=== PATIENT | male | born 1935 | race Caucasian/White ===

== ENCOUNTER 2019-10-26 11:42 | Inpatient (IN) | payer MEDICARE, BC ==
[2019-10-26] VITALS (9 sets, daily range): BP systolic 76–102; BP diastolic 30–58
[~2019-10-26] VITALS: Ht 177.8 cm; Wt 65.8 kg
[2019-10-26] MEDS ORDERED: CEFTRIAXONE 1GM BAG (ER ONLY) 50 ML IV ONE ×2 (12:00→12:24)
[2019-10-26] MEDS ORDERED: ACETAMINOPHEN ES 500 MG TABLET PO ONE (12:00)
[2019-10-26] MEDS ORDERED: AZITHROMYCIN 500 MG in IV D5W 250 ML IV ONE (12:00)
[2019-10-26] MEDS ORDERED: DEXAMETHASONE SOD PHOSPHATE 10 MG/ML VIAL IV ONE (12:00)
[2019-10-26] MEDS ORDERED: IV NS 0.9% 1,000 ML BAG IV ONE (12:00)
--- NOTE | 2019-10-26 12:20 | NUR ---
BIB FROM HOME TO ER BED 6. AWAKE, ALERT BUT CONFUSED. IN MOD RESP DISTRESS BREATHING FAST WITH ACCESSORY MUSCLE USE, SATTING @ 95% ON RA. PER REPORT, PT HAD FEVER OF 102 SINCE YESTERDAY. PT IS ALSO NOTED WITH PRODUCTIVE COUGH WITH CRACKLE AND WHEEZING. PT IS PLACED ON 02 VIA FACE MASK@ 8LPM PER MD ORDERED. PT WAS ALSO REPORTED TO HAVE VOMMITED YESTERDAY AND POSSIBLE ASPIRATION. ORAL TEMP NOTED @ 99.9. MD WAS AT THE BEDSIDE FOR EVAL. ORDERS RECEIVED NOTED AND CARRIED OUT.
[2019-10-26] MEDS ORDERED: AZITHROMYCIN 500 MG VIAL ONE (12:24)
[2019-10-26] MEDS ORDERED: DEXAMETHASONE SOD PHOSPHATE 10 MG/ML VIAL ONE (12:24)
[2019-10-26] MEDS ORDERED: ACETAMINOPHEN ES 500 MG TABLET ONE (12:25)
[2019-10-26 12:29] LABS: BASOPHILS % (AUTO) 0.1 % (0.0-2.0); EOSINOPHILS % (AUTO) 0.2 % (0.0-6.0); HEMATOCRIT 39 % (39-51); HEMOGLOBIN 12.3 g/dL (13.5-17.5); LYMPHOCYTES # (AUTO) 0.2 /CMM (0.8-4.8); LYMPHOCYTES % (AUTO) 1.6 % (20.0-44.0); MEAN CORPUSCULAR HGB CONC 32 g/dl (31.0-36.0); MEAN CORPUSCULAR VOLUME 102 fL (80-96); MONOCYTES # (AUTO) 0.2 /CMM (0.1-1.30); MONOCYTES % (AUTO) 1.1 % (2.0-12.0); NEUTROPHILS # (AUTO) 14.8 /CMM (1.8-8.9); PLATELET COUNT (AUTO) 141 /CMM (150-450); RED BLOOD CELL COUNT(AUTO) 3.79 MIL/uL (4.5-6.0); WHITE BLOOD COUNT (AUTO) 15.3 K/uL (4.3-11.0)
[2019-10-26 12:41] LABS: CALCIUM, SERUM 9.1 mg/dL (8.5-10.1); CARBON DIOXIDE 15 mmol/L (21-32); CHLORIDE 97 mmol/L (98-107); CREATININE 2.8 mg/dL (0.6-1.3); GLUCOSE 107 mg/dL (74-106); POTASSIUM 5.6 mmol/L (3.5-5.1); SODIUM SERUM 129 mmol/L (136-145); UREA NITROGEN, BLOOD 58 mg/dL (7-18)
[2019-10-26 12:53] LABS: ALANINE AMINOTRANSFERASE 265 U/L (12-78); ALKALINE PHOSPHATASE 175 U/L (46-116); ASPARTATE AMINOTRANSFERASE 175 U/L (15-37); B-TYPE NATRIURETIC PEPTIDE 12672 PG/ML (0-125); BILIRUBIN,DIRECT 3.9 mg/dL (0.0-0.2); TOTAL PROTEIN, SERUM 7.5 g/dL (6.4-8.2)
[2019-10-26 12:54] LABS: BAND % (MANUAL) 21 % (0.0-5.0); LYMPHOCYTES % (MANUAL) 2 % (16-48); MONOCYTES % (MANUAL) 2 % (0-11.0); MYELOCYTES % 1 % (0-0); NEUTROPHILS % (MANUAL) 74 (42-76)
[2019-10-26 12:56] LABS: BILIRUBIN,TOTAL 4.6 mg/dL (0.2-1.0); D-DIMER 10.09 mg/L(FEU (0.17-0.50)
[2019-10-26 12:57] LABS: CREATINE KINASE, TOTAL 223 U/L (39-308); FERRITIN 113 ng/mL (8-388)
[2019-10-26 12:59] LABS: C-REACTIVE PROTEIN 19.6 mg/dL (0.0-0.9)
--- NOTE | 2019-10-26 13:20 | NUR ---
VERBAL ORDER RECEIVED TO GIVEN ANOTHER 1L NS IV BOLUS X 1. NOTED AND CARRIED OUT
[2019-10-26] MEDS ORDERED: IV NS 0.9% 500 ML BAG IV ONE (13:30)
--- NOTE | 2019-10-26 13:30 | NUR ---
PT TITRATED DOWN TO 6LPM VIA FACE MASK SATTING @ 100%
--- NOTE | 2019-10-26 13:51 | NUR ---
PT TO CT ON [place]
--- NOTE | 2019-10-26 13:57 | NUR ---
ROOM 103
--- NOTE | 2019-10-26 14:24 | NUR ---
report given to claudette Angel for uday
--- NOTE | 2019-10-26 14:47 | NUR ---
pt transported to unit on gurney with emt and rn at bedside w/ acls protocol. nad noted during transport.
--- NOTE | 2019-10-26 15:00 | NUR ---
Received patient form ER via daly,A/O x1, on 6L mask, sat 100%, labored resp noted; IV line noted R ac, Ostomy bag noted, intact and no leakage observed,pt has left proctor skin lesion, and discoloration of right leg, personal belongis in place, hearing aids removed and placed in belongings bag, watches noted and placed in belonging bag. Safety measures implemented, bed in lowest position, call light within reach Will cont to monitor
--- NOTE | 2019-10-26 15:25 | NUR ---
Patient's BP is low, MD notified, OK to transfer to ICU
[2019-10-26] MEDS ORDERED: ONDANSETRON HCL/PF 4 MG/2 ML VIAL IVP PRN (15:30)
[2019-10-26] MEDS ORDERED: ACETAMINOPHEN 325 MG TABLET PO PRN (15:30)
[2019-10-26] MEDS ORDERED: Z GUARD REMEDY 2 OZ OINT TP PRN (15:30)
[2019-10-26] MEDS ORDERED: HYDROCODONE/APAP 5/325MG 1 EACH TABLET PO PRN (15:30)
[2019-10-26] MEDS ORDERED: MAGNESIUM HYDROXIDE 30 ML UDC PO PRN (15:30)
[2019-10-26] MEDS ORDERED: MAG HYDROX/AL HYDROX/SIMETH 30 ML UDC PO PRN (15:30)
[2019-10-26] MEDS ORDERED: ENOXAPARIN SODIUM 40 MG/0.4 ML DISP.SYRIN SQ SCH (15:30)
[2019-10-26] MEDS ORDERED: ZOLPIDEM TARTRATE 5 MG TABLET PO PRN (15:30)
[2019-10-26] MEDS ORDERED: ENOXAPARIN SODIUM 30 MG/0.3 ML DISP.SYRIN SQ SCH (16:00)
[2019-10-26] MEDS ORDERED: HEPARIN SODIUM, PORCINE 5000 UNITS/1 ML VIAL SQ SCH (16:00)
--- NOTE | 2019-10-26 16:05 | NUR ---
RN NOTES RECEIVED PATIENT FROM [facility] AOX1. ON OXYGEN 6L/MIN VIA SIMPLE MASK SATURATING 99-100%. BREATHING NORMAL NO SOB NOTED RESPIRATION EVEN NON LABORED. NO S/S OF PAIN OR DISTRESS NOTED. RT SIDE COLOSTOMY BAG INTACT NO LEAKAGE NOTED. BODY ASSESSMENT DONE NOTED WITH SKIN ISSUES PICTURE TAKEN. RFA IV SITE INTACT PATENT NO S/S OF INFILTRATION NOTED. SAFETY PRECAUTION IN PLACE. WILL CONT TO MONITOR.
--- NOTE | 2019-10-26 16:19 | NUR ---
RECEIVED CALL FROM LAB REGARDING LACTIC ACID 3.6, NOTIFIED ITS TRENDING DOWN FROM 5.6 NNO.
[2019-10-26] MEDS: IV D5/ 0.9% NACL 1,000 ML IV PRN (16:41)
[2019-10-26] MEDS ORDERED: DEXAMETHASONE SOD PHOSPHATE 4 MG/ML VIAL IV SCH (17:00)
[2019-10-26] MEDS: HEPARIN SODIUM, PORCINE 5000 UNITS/1 ML VIAL SQ SCH (17:01)
[2019-10-27] VITALS (74 sets, daily range): BP systolic 78–164; BP diastolic 35–116
[2019-10-27] MEDS ORDERED: NOREPINEPHRINE 4 MG/4 ML AMPUL IV ONE (01:14)
[2019-10-27] MEDS: NOREPINEPHRINE 8 MG in IV NS 0.9% 242 ML IV PRN ×2 (01:26→13:38)
--- NOTE | 2019-10-27 03:39 | NUR ---
BLOOD CULTURE PRELIMINARY RESULTS RECEIVED GRAM NEGATIVE RODS SEEN ON GRAM STAIN.
[2019-10-27] MEDS: HEPARIN SODIUM, PORCINE 5000 UNITS/1 ML VIAL SQ SCH ×2 (04:00→16:52)
[2019-10-27 04:30] LABS: BASOPHILS % (AUTO) 0.1 % (0.0-2.0); EOSINOPHILS % (AUTO) 4.8 % (0.0-6.0); HEMATOCRIT 36 % (39-51); HEMOGLOBIN 11.8 g/dL (13.5-17.5); LYMPHOCYTES # (AUTO) 0.2 /CMM (0.8-4.8); LYMPHOCYTES % (AUTO) 0.9 % (20.0-44.0); MEAN CORPUSCULAR HGB CONC 33 g/dl (31.0-36.0); MEAN CORPUSCULAR VOLUME 100 fL (80-96); MONOCYTES # (AUTO) 0.4 /CMM (0.1-1.30); MONOCYTES % (AUTO) 1.6 % (2.0-12.0); NEUTROPHILS # (AUTO) 22.8 /CMM (1.8-8.9); NEUTROPHILS % (AUTO) 92.6 % (43.0-81.0); PLATELET COUNT (AUTO) 93 /CMM (150-450); RED BLOOD CELL COUNT(AUTO) 3.65 MIL/uL (4.5-6.0); WHITE BLOOD COUNT (AUTO) 24.7 K/uL (4.3-11.0)
[2019-10-27 04:42] LABS: ALANINE AMINOTRANSFERASE 175 U/L (12-78); ALBUMIN 2.4 g/dL (3.4-5.0); ALKALINE PHOSPHATASE 102 U/L (46-116); ASPARTATE AMINOTRANSFERASE 88 U/L (15-37); BILIRUBIN,DIRECT 3.5 mg/dL (0.0-0.2); BILIRUBIN,TOTAL 3.7 mg/dL (0.2-1.0); CALCIUM, SERUM 8.3 mg/dL (8.5-10.1); CARBON DIOXIDE 15 mmol/L (21-32); CHLORIDE 102 mmol/L (98-107); CREATININE 2.2 mg/dL (0.6-1.3); GLUCOSE 145 mg/dL (74-106); MAGNESIUM 2.2 mg/dL (1.8-2.4); PHOSPHORUS 3.8 mg/dL (2.5-4.9); POTASSIUM 4.6 mmol/L (3.5-5.1); SODIUM SERUM 132 mmol/L (136-145); TOTAL PROTEIN, SERUM 6.5 g/dL (6.4-8.2); UREA NITROGEN, BLOOD 58 mg/dL (7-18)
[2019-10-27 04:53] LABS: CHOLESTEROL 79 mg/dL (<200); HDL CHOLESTEROL 10 mg/dL (40-60); LDL 30 mg/dL (0-99); THYROID STIMULATING HORMONE 0.505 uIU/mL (0.358-3.74); TRIGLYCERIDES 95 mg/dL (30-150)
--- NOTE | 2019-10-27 05:00 | NUR ---
PATIENT NOTED WITH LOW PLATELET LEVEL 93 MD NOTIFIED PER MD HOLD HEPARIN.
[2019-10-27 05:15] LABS: BAND % (MANUAL) 38 % (0.0-5.0); BASOPHILS % (MANUAL) 0 % (0.0-2.0); EOSINOPHILS % (MANUAL) 0 % (0-4); LYMPHOCYTES % (MANUAL) 0 % (16-48); MONOCYTES % (MANUAL) 0 % (0-11.0); NEUTROPHILS % (MANUAL) 62 (42-76)
--- NOTE | 2019-10-27 06:57 | NUR ---
RN NOTES PATIENT STARTED ON LEVO TOLERATING WELL. BREATHING NORMAL NO SOB NOTED. CONTINUES ON O2 6L/MIN VIA MASK SATURATING WELL 98-100%. PATIENT RESTED WELL THROUGH OUT THE SHIFT. COLOSTOMY BAG INTACT NO LEAKAGE NOTED. SAFETY MEASURES IN PLACE, CALL LIGHT WITHIN REACH. WILL ENDORSE TO AM NURSE FOR ARNAUD.
--- NOTE | 2019-10-27 08:06 | NUR ---
WOUND CARE CONSULT: REVIEWED CHART, NURSING DOCUMENTATION AND PHOTOS WHICH SHOW LOWER LEG WOUNDS, PRESENT ON ADMISSION. RECOMMEND DPM CONSULT. DR ANGELO NOTIFIED OF CONSULT REQUEST. RECOMMENDATIONS MADE FOR SKIN PROTECTION. DISCUSSED WITH NURSING STAFF. WILL SEE PRN. TONG IN AGREEMENT WITH PLAN OF CARE.
[2019-10-27] MEDS ORDERED: TAMS-12 PO (08:56)
[2019-10-27] MEDS ORDERED: ASPI-605 PO (08:56)
[2019-10-27] MEDS ORDERED: PANT40TA4 PO (08:56)
[2019-10-27] MEDS ORDERED: ATOR20TA PO (08:56)
[2019-10-27] MEDS ORDERED: CARV3.122 MT (08:56)
[2019-10-27] MEDS: DEXAMETHASONE SOD PHOSPHATE 10 MG/ML VIAL IV SCH (09:56)
[2019-10-27] MEDS: PANTOPRAZOLE 40 MG TABLET.DR PO SCH (09:57)
[2019-10-27 12:26] LABS: ABG BASE EXCESS -11.6 mmol/L; ABG OXYGEN SATURATION 96.9 % (92.0-98.5); ABG PCO2 21.8 mmHg (35.0-45.0); ABG PH 7.354 (7.350-7.450); ABG PO2 91.3 mmHg (75.0-100.0); AaDO2 82.6 mmHg; COHb 0.3 % (0.5-1.5); O2Hb 96.6 % (94.0-97.0); SITE, ABG Left Radial
[2019-10-27] MEDS ORDERED: CEFTRIAXONE 1 G in IV D5W 50 ML IV SCH (13:00)
[2019-10-27] MEDS: IV D5/ 0.9% NACL 1,000 ML IV PRN (13:30)
[2019-10-27] MEDS ORDERED: AZITHROMYCIN 500 MG in IV D5W 250 ML IV SCH (14:00)
[2019-10-27] MEDS ORDERED: MEROPENEM 1 G in IV NS 0.9% 100 ML IV SCH (15:30)
[2019-10-27 16:09] LABS: APPEARANCE,URINE CLEAR (CLEAR); BILIRUBIN,URINE SMALL (NEGATIVE); BLOOD, URINE LARGE Ery/uL (NEGATIVE); COLOR,URINE YELLOW (YELLOW); KETONES,URINE NEGATIVE (NEGATIVE); LEUKOCYTE ESTERASE ,URINE TRACE (NEGATIVE); NITRITE, URINE POSITIVE (NEGATIVE); PROTEIN,URINE 30 mg/dl (NEGATIVE); UGLUCOSE NEGATIVE (NEGATIVE); UROBILINOGEN,URINE 0.2 EU/dL (0.2)
[2019-10-27] MEDS: CARVEDILOL 3.125 MG TABLET PO SCH (16:23)
[2019-10-27 16:24] LABS: RBC,URINE 21-50 /HPF (0-2)
[2019-10-27 16:25] LABS: BACTERIA,URINE 1+ /HPF (None Seen); SQUAMOUS EPITHELIAL CELL,UR 0-2 /HPF (None Seen)
[2019-10-27] MEDS: MEROPENEM 500 MG in IV NS 0.9% 50 ML IV SCH (16:53)
[2019-10-27] MEDS ORDERED: NOREPINEPHRINE 8 MG in IV D5W 242 ML IV PRN (18:30)
--- NOTE | 2019-10-27 18:41 | NUR ---
ICU Shift Summary At the beginning of shift, patient was in 6L O2 via simple mask. Titrated down to 2L O2 via nasal cannula + ABG obtained 30 min after. No respiratory distress, SPO2 97%. Patient appears comfortable, resting in bed. Alert, able to verbalize name, hard of hearing, sensitive to pain, combative at times. Tele monitor attached, SR/SB 1st degree+BBB. R colostomy intact. Wound care provided, turned per protocol. Swallow eval today - [facility] soft diet. Ate 50% of dinner. RFA 18G patent, ADRIÁN midline infusing D5NS @45mL/hr , levo@0.06mcg/kg/min, titrated per order. Spoke to Ellyn, x2 today + patient's son who was updated. Bed alarm on.
--- NOTE | 2019-10-27 19:09 | NUR ---
RECEIVED LAB RESULT FOR LACTIC ACID 3.4, NOTIFIED NNO ITS TRENDING IN EXPECTED DIRECTION.
--- NOTE | 2019-10-27 19:30 | NUR ---
RN NOTES RECEIVED PATIENT IN BED ALERT RESPONSE YES OR NO. BREATHING NORMAL NO SOB NOTED CONTINUES ON 2L OXYGEN VIA NC SATURATING 98-99%, NO S/S OF PAIN OR DISCOMFORT NOTED. ADRIÁN MIDLINE RFA IV'S INTACT FLUSHING WELL. RT COLOSTOMY INTACT. SKIN WARM AND DRY TO TOUCH. SAFETY MEASURES IN PLACE. CALL LIGHT WITHIN REACH. WILL CONT TO MONITOR.
--- NOTE | 2019-10-27 21:15 | NUR ---
RECEIVED CALL FROM PATIENT'S SON THAT HIS DAD ALWAYS HAVE UTI INFECTION FOR THE LAST 3-5 YEARS.
[2019-10-27] MEDS: TAMSULOSIN 0.4 MG CAP.SR.24H PO SCH (21:18)
[2019-10-27] MEDS: ATORVASTATIN 10 MG TABLET PO SCH (21:18)
[2019-10-28] VITALS (64 sets, daily range): BP systolic 86–132; BP diastolic 40–72
[2019-10-28 04:24] LABS: BASOPHILS # (AUTO) 0.1 /CMM (0.0-0.2); BASOPHILS % (AUTO) 0.3 % (0.0-2.0); EOSINOPHILS % (AUTO) 0.8 % (0.0-6.0); HEMATOCRIT 35 % (39-51); HEMOGLOBIN 11.7 g/dL (13.5-17.5); LYMPHOCYTES # (AUTO) 0.2 /CMM (0.8-4.8); LYMPHOCYTES % (AUTO) 0.6 % (20.0-44.0); MEAN CORPUSCULAR HGB CONC 33 g/dl (31.0-36.0); MEAN CORPUSCULAR VOLUME 100 fL (80-96); MONOCYTES # (AUTO) 0.3 /CMM (0.1-1.30); MONOCYTES % (AUTO) 1.1 % (2.0-12.0); NEUTROPHILS # (AUTO) 25.7 /CMM (1.8-8.9); NEUTROPHILS % (AUTO) 97.2 % (43.0-81.0); PLATELET COUNT (AUTO) 66 /CMM (150-450); RED BLOOD CELL COUNT(AUTO) 3.55 MIL/uL (4.5-6.0); WHITE BLOOD COUNT (AUTO) 26.4 K/uL (4.3-11.0)
[2019-10-28] MEDS: MEROPENEM 500 MG in IV NS 0.9% 50 ML IV SCH (04:25)
[2019-10-28] MEDS: HEPARIN SODIUM, PORCINE 5000 UNITS/1 ML VIAL SQ SCH ×2 (04:29→17:30)
[2019-10-28 04:36] LABS: CALCIUM, SERUM 8.5 mg/dL (8.5-10.1); CARBON DIOXIDE 16 mmol/L (21-32); CHLORIDE 108 mmol/L (98-107); CREATININE 1.8 mg/dL (0.6-1.3); GLUCOSE 139 mg/dL (74-106); MAGNESIUM 2.2 mg/dL (1.8-2.4); PHOSPHORUS 2.9 mg/dL (2.5-4.9); POTASSIUM 4.2 mmol/L (3.5-5.1); SODIUM SERUM 137 mmol/L (136-145); UREA NITROGEN, BLOOD 61 mg/dL (7-18)
[2019-10-28 05:35] LABS: BAND % (MANUAL) 32 % (0.0-5.0); LYMPHOCYTES % (MANUAL) 1 % (16-48); MONOCYTES % (MANUAL) 1 % (0-11.0); NEUTROPHILS % (MANUAL) 66 (42-76)
--- NOTE | 2019-10-28 07:01 | NUR ---
RN NOTES NO CHANGES NOTED DURING SHIFT. CONTINUES ON LEVO ATB AND IV FLUIDS TOLERATING WELL. NO S/S OF ACUTE DISTRESS NOTED. BED BATH GIVEN TOLERATED WELL. RT OSTOMY BAG INTACT. TALKED TO X3 AND SON X1. SKIN WARM AND DRY TO TOUCH. SAFETY MEASURES IN PLACE. CALL LIGHT WITHIN REACH.WILL ENDORSE TO AM NURSE FOR ARNAUD.
[2019-10-28] MEDS: PANTOPRAZOLE 40 MG TABLET.DR PO SCH (07:43)
[2019-10-28] MEDS: DEXAMETHASONE SOD PHOSPHATE 10 MG/ML VIAL IV SCH (07:44)
[2019-10-28] MEDS: CARVEDILOL 3.125 MG TABLET PO SCH ×2 (07:44→16:50)
[2019-10-28] MEDS ORDERED: PANTOPRAZOLE 40 MG TABLET.DR PO SCH (09:00)
[2019-10-28] MEDS ORDERED: ASPIRIN EC 81 MG TABLET.DR PO SCH (09:00)
[2019-10-28] MEDS: CEFTRIAXONE 2 G in IV D5W 100 ML IV SCH (15:00)
[2019-10-28] MEDS: METRONIDAZOLE 500MG/ NS 100ML 500 MG in PREMIX 1 EA IV SCH ×2 (16:00→21:00)
[2019-10-28] MEDS: IV D5/ 0.9% NACL 1,000 ML IV PRN (18:01)
--- NOTE | 2019-10-28 19:10 | NUR ---
SALAD CHEF Shift Summary Patient remains A/Ox1, verbal, able to follow simple command, LIME. Levo turned off early this am, BP WNL, on room air SPO2 98%, no SOB, RR 28, even, unlabored. Suction at bedside. Aspiration precautions maintained -> diet changed to pureed as patient noted to cough after speech [facility] ADRIÁN midline intact. PT eval placed. Per Cain Feng Heparin ok to give despite platelets=66. No active bleeding noted. Afebrile throughout shift. Talked with x3 today. Hearing aids at bedside. Colostomy bag intact. Turned per protocol, wound care as ordered.
--- NOTE | 2019-10-28 19:30 | NUR ---
RN NOTES RECEIVED PATIENT IN BED A/OX1. BREATHING NORMAL NO SOB NOTED, RESPIRATION EVEN NON LABORED. ON RA SATURATING WELL 98-100%. ADRIÁN MIDLINE INTACT PATENT FLUSHING WELL. DENIES NAY PAIN OR DISCOMFORT. SKIN WARM AND DRY TOUCH. PATIENT AFEBRILE. SAFETY MEASURES IN PLACE. WILL CONT TO MONITOR.
[2019-10-28] MEDS: ATORVASTATIN 10 MG TABLET PO SCH (21:11)
[2019-10-28] MEDS: TAMSULOSIN 0.4 MG CAP.SR.24H PO SCH (21:12)
[2019-10-29] VITALS (16 sets, daily range): BP systolic 88–122; BP diastolic 42–81
[2019-10-29 04:19] LABS: BASOPHILS % (AUTO) 0.1 % (0.0-2.0); HEMATOCRIT 35 % (39-51); HEMOGLOBIN 11.4 g/dL (13.5-17.5); LYMPHOCYTES # (AUTO) 0.2 /CMM (0.8-4.8); LYMPHOCYTES % (AUTO) 1.7 % (20.0-44.0); MEAN CORPUSCULAR HGB CONC 33 g/dl (31.0-36.0); MEAN CORPUSCULAR VOLUME 100 fL (80-96); MONOCYTES # (AUTO) 0.4 /CMM (0.1-1.30); MONOCYTES % (AUTO) 3.5 % (2.0-12.0); NEUTROPHILS # (AUTO) 11.3 /CMM (1.8-8.9); NEUTROPHILS % (AUTO) 94.7 % (43.0-81.0); RED BLOOD CELL COUNT(AUTO) 3.48 MIL/uL (4.5-6.0); WHITE BLOOD COUNT (AUTO) 11.9 K/uL (4.3-11.0)
[2019-10-29 04:30] LABS: PLATELET COUNT (AUTO) 22 /CMM (150-450)
[2019-10-29 04:36] LABS: CALCIUM, SERUM 8.2 mg/dL (8.5-10.1); CARBON DIOXIDE 16 mmol/L (21-32); CHLORIDE 112 mmol/L (98-107); CREATININE 1.8 mg/dL (0.6-1.3); GLUCOSE 141 mg/dL (74-106); MAGNESIUM 2.2 mg/dL (1.8-2.4); PHOSPHORUS 2.1 mg/dL (2.5-4.9); SODIUM SERUM 141 mmol/L (136-145); UREA NITROGEN, BLOOD 68 mg/dL (7-18)
[2019-10-29] MEDS: METRONIDAZOLE 500MG/ NS 100ML 500 MG in PREMIX 1 EA IV SCH ×3 (05:08→21:06)
[2019-10-29 05:16] LABS: BAND % (MANUAL) 13 % (0.0-5.0); LYMPHOCYTES % (MANUAL) 2 % (16-48); MONOCYTES % (MANUAL) 4 % (0-11.0); NEUTROPHILS % (MANUAL) 81 (42-76)
--- NOTE | 2019-10-29 06:00 | NUR ---
PATIENT'S PLATELET-22, PATIENT IS DUE FOR HEPARIN CALLED ABHINAV SALES SUPPORT REPRESENTATIVE, PER SALES SUPPORT REPRESENTATIVE OK TO GIVE HEPARIN.
[2019-10-29] MEDS: HEPARIN SODIUM, PORCINE 5000 UNITS/1 ML VIAL SQ SCH (06:13)
--- NOTE | 2019-10-29 07:16 | NUR ---
RN NOTES PATIENT REMAINED ON RA SATURATING 99-100%. BREATHING NORMAL NO SOB NOTED, RESPIRATION EVEN NON LABORED. NO S/S OF ACUTE CHANGES NOTED. ADRIÁN MIDLINE INTACT PATENT FLUID AND ATB RUNNING WELL. BED BATH GIVEN PATIENT TOLERATED WELL. NO S/S OF DISTRESS NOTED. SAFETY MEASURES IN PLACE. ENDORSE TO AM NURSE FOR ARNAUD.
[2019-10-29] MEDS: CARVEDILOL 3.125 MG TABLET PO SCH ×2 (07:58→17:00)
[2019-10-29] MEDS: NEUTRA PHOS 1 POWD.PACKET PO SCH ×2 (08:43→16:11)
[2019-10-29] MEDS: PANTOPRAZOLE 40 MG TABLET.DR PO SCH (08:43)
[2019-10-29] MEDS: DEXAMETHASONE SOD PHOSPHATE 10 MG/ML VIAL IV SCH (08:43)
--- NOTE | 2019-10-29 12:50 | NUR ---
PT TRANSFERRED VIA BED WITH RN AT BEDSIDE AT 1243, BEDSIDE REPORT GIVEN TO SANDI AMIN. PRIOR TO TRANSFERRING PATIENT HEARING AID CASE AND 2 FULL PACKS OF HEARING AID BATTERIES RECEIVED FROM PT'S . NEW PERSONAL PROPERTY DOCUMENTED ON PERSONAL PROPERTY LIST IN CHART. PT WAS CLEANED UP FROM INCONTINENT VOIDING PRIOR TO TRANSFER AND PT WAS FED LUNCH.
--- NOTE | 2019-10-29 13:00 | NUR ---
RECEIVED PATIENT FROM ICU. PATIENT IS AWAKE AND RESPONSIVE. HARD OF HEARING, HEARING AID INSIDE THE BELONGINGS BAG. NOT IN ANY FORM OF DISTRESS. NO SOB, TOLERATING ROOM AIR AT 96% SATURATION. DENIED PAIN AND DISCOMFORT AT THIS TIME. VSS. IV ACCESS INTACT AND PATENT. NOTED WITH OSTOMY BAG AT RLQ. SITUATED PATIENT IN THE ROOM. KEPT PATIENT SAFE AND COMFORTABLE. BED IN LOW/LOCKED POSITION, SIDERAILS UPX2, CALL LIGHT IN REACH. WILL CONT TO MONITOR ACCORDINGLY.
[2019-10-29] MEDS: IV D5/ 0.9% NACL 1,000 ML IV PRN (14:07)
[2019-10-29] MEDS: CEFTRIAXONE 2 G in IV D5W 100 ML IV SCH (16:24)
--- NOTE | 2019-10-29 19:30 | NUR ---
RN CLOSING NOTES PATIENT IN STABLE CONDITION. ALL NEEDS ATTENDED AND PROVIDED. ALL DUE MEDS GIVEN ORDERED. CLEANED PATIENT ACCORDINGLY. KEPT PATIENT SKIN CLEAN AND DRY. KEPT PATIENT SAFE AND COMFORTABLE. BED IN LOW/LOCKED POSITION, SIDERAILS UPX 2. CALL LIGHT IN REACH. ENDORSED ACCORDINGLY.
--- NOTE | 2019-10-29 19:45 | NUR ---
ms sheet metal lay out worker initial notes received report from am nurse and checked pt seen in bed awake and alert confusion noted not in any acute distress noted, with IVF of D5NS at 45ml/hr infusing at this time on his ADRIÁN midline. colostomy bag intact with dry output noted. Re- oriented where he at and how to used the call light system. kept him warm and comfortable at all times. Be alarm set for safety. bed in low lock in position with side rails x2 up. will continue monitoring.
[2019-10-29] MEDS: TAMSULOSIN 0.4 MG CAP.SR.24H PO SCH (22:33)
--- NOTE | 2019-10-30 | NUR ---
ms simone notes pt sleeping at this time without any distress noted. ivf still infusing. kept him warm and comfortable at all times. will continue monitoring.
[2019-10-30] MEDS: METRONIDAZOLE 500MG/ NS 100ML 500 MG in PREMIX 1 EA IV SCH ×3 (05:00→21:38)
[2019-10-30 06:45] LABS: EOSINOPHILS % (AUTO) 0.9 % (0.0-6.0); HEMATOCRIT 35 % (39-51); HEMOGLOBIN 11.4 g/dL (13.5-17.5); LYMPHOCYTES # (AUTO) 0.3 /CMM (0.8-4.8); LYMPHOCYTES % (AUTO) 2.7 % (20.0-44.0); MEAN CORPUSCULAR HGB CONC 33 g/dl (31.0-36.0); MEAN CORPUSCULAR VOLUME 99 fL (80-96); MONOCYTES # (AUTO) 0.8 /CMM (0.1-1.30); MONOCYTES % (AUTO) 6.8 % (2.0-12.0); NEUTROPHILS # (AUTO) 9.9 /CMM (1.8-8.9); NEUTROPHILS % (AUTO) 89.6 % (43.0-81.0); RED BLOOD CELL COUNT(AUTO) 3.53 MIL/uL (4.5-6.0); WHITE BLOOD COUNT (AUTO) 11.1 K/uL (4.3-11.0)
--- NOTE | 2019-10-30 06:52 | NUR ---
ms information technology specialist closing notes pt awake at ths time after morning care done. Slept well and stable ju the night. no signs of any discomfort or any distress noted. IVF fluid still infusing on his left upper arm Midline. All due meds given and all needs met. kept him warm and comfortable at all times. Bed in low in position with side rails x3 up and bed alarm set for pt safety. will endorse to am nurse for continuity of care.
[2019-10-30 06:58] LABS: CALCIUM, SERUM 8.7 mg/dL (8.5-10.1); CARBON DIOXIDE 16 mmol/L (21-32); CHLORIDE 114 mmol/L (98-107); CREATININE 1.5 mg/dL (0.6-1.3); GLUCOSE 113 mg/dL (74-106); MAGNESIUM 2.5 mg/dL (1.8-2.4); PHOSPHORUS 2.7 mg/dL (2.5-4.9); POTASSIUM 4.1 mmol/L (3.5-5.1); SODIUM SERUM 142 mmol/L (136-145); UREA NITROGEN, BLOOD 63 mg/dL (7-18)
[2019-10-30 07:13] LABS: PLATELET COUNT (AUTO) 44 /CMM (150-450)
[2019-10-30 08:00] VITALS: BP 113/56
[2019-10-30] MEDS: DEXAMETHASONE SOD PHOSPHATE 10 MG/ML VIAL IV SCH (08:26)
[2019-10-30] MEDS: PANTOPRAZOLE 40 MG TABLET.DR PO SCH (08:32)
[2019-10-30] MEDS: CARVEDILOL 3.125 MG TABLET PO SCH ×2 (08:33→16:39)
[2019-10-30 08:48] LABS: ALANINE AMINOTRANSFERASE 205 U/L (12-78); ALBUMIN 2.2 g/dL (3.4-5.0); ALKALINE PHOSPHATASE 442 U/L (46-116); ASPARTATE AMINOTRANSFERASE 176 U/L (15-37); BILIRUBIN,TOTAL 7.5 mg/dL (0.2-1.0); CALCIUM, SERUM 8.8 mg/dL (8.5-10.1); CARBON DIOXIDE 14 mmol/L (21-32); CHLORIDE 113 mmol/L (98-107); CREATININE 1.6 mg/dL (0.6-1.3); GLUCOSE 115 mg/dL (74-106); POTASSIUM 4.1 mmol/L (3.5-5.1); SODIUM SERUM 142 mmol/L (136-145); UREA NITROGEN, BLOOD 63 mg/dL (7-18)
--- NOTE | 2019-10-30 10:05 | NUR ---
MS RN OPENING NOTE Received patient awake in bed. A/O x1, able to follow simple command. Breath sounds clear, even, unlabored. No signs acute distress. Heart sound S1S2. Hearing aids at bedside. Colostomy bag intact. Stool output semi-formed, brown. Wound dressing change to left leg, clean, dry, intact. ADRIÁN midline D5NS @ 45 ml/hr. Skin color warm, pink, dry, appropriate for ethnicity. Bed in low position, wheels locked, side rails up x2, call light within reach.
[2019-10-30 10:10] LABS: BAND % (MANUAL) 1 % (0.0-5.0); LYMPHOCYTES % (MANUAL) 4 % (16-48); MONOCYTES % (MANUAL) 5 % (0-11.0); NEUTROPHILS % (MANUAL) 90 (42-76)
[2019-10-30] MEDS: CEFTRIAXONE 2 G in IV D5W 100 ML IV SCH (15:17)
[2019-10-30 16:00] VITALS: BP 128/51
[2019-10-30] MEDS: IV D5/ 0.9% NACL 1,000 ML IV PRN (16:51)
--- NOTE | 2019-10-30 17:05 | NUR ---
Clarified with JOSE MIGUEL Barlow regarding pt's length of IV ATB Flagyl and Rocephin infusion if pt will be discharge tomorrow with Home Health, JOSE MIGUEL Barlow stated that the pt needs a total of 10 days from the 5th so pt will be needing 5 more days after tomorrow. Notified [employer].
--- NOTE | 2019-10-30 17:49 | NUR ---
MS RN CLOSING NOTE Pt asleep in bed. A/O x1, follows simple command. No signs of distress. Breath sounds unlabored, even. Colostomy bag changed 1x. Stool output semi-formed, brown. Wound dressing on L leg changed. Drainage was serosanguineous. DARIÁN midline IV running D5NS @ 45 ml/hr. IV site RFA 18g intact, patent. Bed in low position, wheels locked, side rails up x2, call light within reach, needs met.
--- NOTE | 2019-10-30 19:50 | NUR ---
RN OPENING NOTES RECEIVED REPORT FROM DANO RN, OMAR & ROLDAN. FOUND Pt RESTING IN BED, NO S/S OF ACUTE DISTRESS OR SOB NOTED. RESPIRATIONS EVEN AND UNLABORED WITH EQUAL CHEST RISE AND FALL. PER REPORT Pt IS A/OX1, WITH BASELINE DEMENTIA & CONFUSION, BUT IS ABLE TO FOLLOW SIMPLE COMMANDS. IV ACCESS ON RFA #18G, SL & ADRIÁN MIDLINE. WITH COLOSTOMY BAG IN PLACE. SAFETY MEASURES IN PLACE. BED LOW, LOCKED, HOB ELEVATED, SIDE RAILS UP, CALL LIGHT AND BEDSIDE TABLE WITHIN REACH. WILL CONTINUE TO MONITOR Pt's CONDITION AND SAFETY THROUGHOUT THE NIGHT. Addendum: 10/30/19 at 2017 by JG PLATA RN PER CHANGE OF SHIFT REPORT Pt IS BEING DISCHARGED TOMORROW BACK HOME WITH HOME HEALTH. WILL BE DC'd WITH MIDLINE TO CONTINUE IV ABX. SCHEDULED SORTER PRICER TIME IS AT 1500.
[2019-10-30 20:12] VITALS: BP 108/56
[2019-10-30 20:45] VITALS: BP 108/56
[2019-10-30] MEDS: TAMSULOSIN 0.4 MG CAP.SR.24H PO SCH (21:39)
[2019-10-31] MEDS: METRONIDAZOLE 500MG/ NS 100ML 500 MG in PREMIX 1 EA IV SCH ×3 (05:07→20:54)
[2019-10-31 06:20] LABS: HEMATOCRIT 34 % (39-51); HEMOGLOBIN 11.2 g/dL (13.5-17.5); LYMPHOCYTES # (AUTO) 0.4 /CMM (0.8-4.8); LYMPHOCYTES % (AUTO) 3.6 % (20.0-44.0); MEAN CORPUSCULAR HGB CONC 33 g/dl (31.0-36.0); MEAN CORPUSCULAR VOLUME 99 fL (80-96); MONOCYTES # (AUTO) 0.7 /CMM (0.1-1.30); MONOCYTES % (AUTO) 5.5 % (2.0-12.0); NEUTROPHILS # (AUTO) 11.3 /CMM (1.8-8.9); NEUTROPHILS % (AUTO) 90.9 % (43.0-81.0); PLATELET COUNT (AUTO) 65 /CMM (150-450); RED BLOOD CELL COUNT(AUTO) 3.45 MIL/uL (4.5-6.0); WHITE BLOOD COUNT (AUTO) 12.5 K/uL (4.3-11.0)
[2019-10-31] MEDS: PANTOPRAZOLE 40 MG TABLET.DR PO SCH (06:29)
--- NOTE | 2019-10-31 06:38 | NUR ---
RN CLOSING NOTES NO SIGNIFICANT CHANGES IN Pt's CONDITION DURING THE NIGHT. ALL NEEDS MET AND ATTENDED TO. Pt IS RESTING COMFORTABLY IN BED. NO S/S OF ACUTE DISTRESS OR SOB NOTED, RESPIRATION EVEN AND UNLABORED. SAFETY MEASURES IN PLACE. WILL ENDORSE TO DAYSHIFT RN FOR Pt's ARNAUD.
[2019-10-31 06:50] LABS: CALCIUM, SERUM 8.6 mg/dL (8.5-10.1); CARBON DIOXIDE 15 mmol/L (21-32); CHLORIDE 113 mmol/L (98-107); CREATININE 1.5 mg/dL (0.6-1.3); GLUCOSE 105 mg/dL (74-106); MAGNESIUM 2.2 mg/dL (1.8-2.4); POTASSIUM 3.9 mmol/L (3.5-5.1); SODIUM SERUM 141 mmol/L (136-145); UREA NITROGEN, BLOOD 53 mg/dL (7-18)
--- NOTE | 2019-10-31 08:00 | NUR ---
m/s nurses' registry director: initial assessment received pt in bed awake, a/ox1, pt mostly passive, but follows directions. no sob noted. voiced no discomfort. afebrile. no distress noted. will continue to monitor.
[2019-10-31] MEDS: CARVEDILOL 3.125 MG TABLET PO SCH ×2 (08:33→17:30)
[2019-10-31 09:11] VITALS: BP 129/66
[2019-10-31 09:45] LABS: LYMPHOCYTES % (MANUAL) 9 % (16-48); MONOCYTES % (MANUAL) 2 % (0-11.0); MYELOCYTES % 2 % (0-0); NEUTROPHILS % (MANUAL) 87 (42-76)
--- NOTE | 2019-10-31 10:00 | NUR ---
m/s aeronautical engineer: notes up with physical therapist, braydon. well. will continue to monitor. pt for d'c planning today per case management. awaiting for md order.
--- NOTE | 2019-10-31 12:00 | NUR ---
m/s director of outpatient services: notes lunch served and assisted by crutch maker with meals. pt for d'c at 3pm per case management and aware.
--- NOTE | 2019-10-31 13:30 | NUR ---
m/s dry starch operator: notes reminded dr. dorsey that we need discharge order. also case management spoke to dr. dorsey for discharge order. home health has been arranged by case management and to be home when pt gets there per case management.
--- NOTE | 2019-10-31 14:10 | NUR ---
m/s electrotype finisher: notes dr. dorsey called and will not discharge this pt today, already spoke to son and case management, also spoke to dr. hernandez about his stent, probably will do it tomorrow as stated and wants to keep pt npo. order carried out. cn made aware.
[2019-10-31] MEDS: CEFTRIAXONE 2 G in IV D5W 100 ML IV SCH (14:48)
[2019-10-31 16:00] VITALS: BP 128/70
--- NOTE | 2019-10-31 16:00 | NUR ---
m/s hot metal car operator: notes resting comfortable. no distress, afebrile. remains npo x meds. call light within reach. will continue to monitor.
[2019-10-31] MEDS: CITRIC ACID/SODIUM CITRATE (BICITRA)15 ML UDC PO SCH ×2 (17:30→20:58)
[2019-10-31 17:39] VITALS: BP 128/70
--- NOTE | 2019-10-31 18:00 | NUR ---
m/s aircraft ordnance systems mechanic: notes resting comfortable. no distress. remains npo x meds. call light within reach. will continue to monitor.
--- NOTE | 2019-10-31 19:00 | NUR ---
m/s senior controls technician: notes report given to royce (rn) for continuity of care.
--- NOTE | 2019-10-31 19:11 | NUR ---
MS RN: RECEIVED PATIENT Patient in bed, awake, appears confused. A/O x1 to self only. Hx Dementia. Fall precaution maintained. IVF infusing.
[2019-10-31 20:00] VITALS: BP 130/78
[2019-10-31 20:58] VITALS: BP 130/78
[2019-10-31] MEDS: TAMSULOSIN 0.4 MG CAP.SR.24H PO SCH (20:59)
[2019-10-31] MEDS: IV D5/ 0.9% NACL 1,000 ML IV PRN (22:09)
[2019-11-01] MEDS: METRONIDAZOLE 500MG/ NS 100ML 500 MG in PREMIX 1 EA IV SCH ×2 (05:41→11:56)
--- NOTE | 2019-11-01 06:21 | NUR ---
MS RN: END OF SHIFT REPORT Patient in bed, A/O x1 to self only, good hearing with bilateral hearing aids. Adequate oxygenation in room air. ADRIÁN Midline intact, IVF maintained, NPO except medication. IV antibiotic as scheduled, afebrile overnight. Plan for removal/ replacement of stent. Awaiting GI consult. Will endorse to oncoming RN.
[2019-11-01 06:45] LABS: BASOPHILS % (AUTO) 0.1 % (0.0-2.0); EOSINOPHILS % (AUTO) 0.4 % (0.0-6.0); HEMATOCRIT 35 % (39-51); HEMOGLOBIN 11.4 g/dL (13.5-17.5); LYMPHOCYTES # (AUTO) 0.5 /CMM (0.8-4.8); LYMPHOCYTES % (AUTO) 3.8 % (20.0-44.0); MEAN CORPUSCULAR HGB CONC 32 g/dl (31.0-36.0); MEAN CORPUSCULAR VOLUME 99 fL (80-96); MONOCYTES # (AUTO) 0.4 /CMM (0.1-1.30); MONOCYTES % (AUTO) 3.1 % (2.0-12.0); NEUTROPHILS % (AUTO) 92.6 % (43.0-81.0); PLATELET COUNT (AUTO) 100 /CMM (150-450); RED BLOOD CELL COUNT(AUTO) 3.54 MIL/uL (4.5-6.0)
[2019-11-01 06:50] LABS: CALCIUM, SERUM 8.3 mg/dL (8.5-10.1); CREATININE 1.3 mg/dL (0.6-1.3); MAGNESIUM 1.9 mg/dL (1.8-2.4); PHOSPHORUS 3.1 mg/dL (2.5-4.9); POTASSIUM 3.7 mmol/L (3.5-5.1)
--- NOTE | 2019-11-01 07:30 | NUR ---
PT RECEIVED RESTING COMFORTABLY IN BED. NO S/S OR C/O PAIN OR DISTRESS NOTED. SIDE RAILS UP X2, CALL LIGHT LEFT WITHIN REACH. WILL CONTINUE PLAN OF CARE.
[2019-11-01 07:34] LABS: BILIRUBIN,DIRECT 8.8 mg/dL (0.0-0.2); BILIRUBIN,TOTAL 11.3 mg/dL (0.2-1.0); TOTAL PROTEIN, SERUM 5.9 g/dL (6.4-8.2)
[2019-11-01 08:00] VITALS: BP 123/62
[2019-11-01] MEDS: CITRIC ACID/SODIUM CITRATE (BICITRA)15 ML UDC PO SCH ×4 (08:15→22:04)
[2019-11-01] MEDS: PANTOPRAZOLE 40 MG TABLET.DR PO SCH (08:15)
[2019-11-01] MEDS: CARVEDILOL 3.125 MG TABLET PO SCH ×2 (08:22→17:25)
[2019-11-01] MEDS: IV 1/2NS 1000 ML 1,000 ML IV PRN (10:45)
[2019-11-01] MEDS: CEFTRIAXONE 2 G in IV D5W 100 ML IV SCH (13:59)
[2019-11-01 16:00] VITALS: BP 132/71
--- NOTE | 2019-11-01 18:59 | NUR ---
CHANGE OF SHIFT REPORT PT RESTING COMFORTABLY IN BED WITH EYES CLOSED. NO S.S OR C/O PAIN OR DISTRESS NOTED. SIDE RAILS UP X2, CALL LIGHT LEFT WITHIN REACH. PT KEPT CLEAN, DRY, AND COMFORTABLE, NO SIGNIFICANT CHANGES SINCE PREVIOUS SHIFT. WILL GIVE REPORT TO CIARA AMIN.
--- NOTE | 2019-11-01 19:14 | NUR ---
MS RN: RECEIVED PATIENT Patient in bed, awake. A/O x1 to self only. Hx Dementia. IVF infusing. Resumed Pureed diet, ERCP on Sunday per report by ELOISA Staton. Fall; aspiration precaution maintained.
[2019-11-01 20:00] VITALS: BP 125/64
[2019-11-01 20:16] VITALS: BP 125/64
[2019-11-01] MEDS: METRONIDAZOLE 500 MG TABLET PO SCH (22:04)
[2019-11-01] MEDS: TAMSULOSIN 0.4 MG CAP.SR.24H PO SCH (22:04)
[2019-11-02] MEDS: METRONIDAZOLE 500 MG TABLET PO SCH ×4 (05:22→22:05)
[2019-11-02 05:56] LABS: BASOPHILS % (AUTO) 0.1 % (0.0-2.0); EOSINOPHILS % (AUTO) 0.8 % (0.0-6.0); HEMATOCRIT 37 % (39-51); HEMOGLOBIN 11.8 g/dL (13.5-17.5); LYMPHOCYTES # (AUTO) 0.6 /CMM (0.8-4.8); LYMPHOCYTES % (AUTO) 3.6 % (20.0-44.0); MEAN CORPUSCULAR HGB CONC 32 g/dl (31.0-36.0); MEAN CORPUSCULAR VOLUME 100 fL (80-96); MONOCYTES # (AUTO) 0.3 /CMM (0.1-1.30); MONOCYTES % (AUTO) 1.8 % (2.0-12.0); NEUTROPHILS # (AUTO) 15.2 /CMM (1.8-8.9); NEUTROPHILS % (AUTO) 93.7 % (43.0-81.0); PLATELET COUNT (AUTO) 124 /CMM (150-450); RED BLOOD CELL COUNT(AUTO) 3.65 MIL/uL (4.5-6.0); WHITE BLOOD COUNT (AUTO) 16.2 K/uL (4.3-11.0)
[2019-11-02 06:28] LABS: ALBUMIN 1.8 g/dL (3.4-5.0); BILIRUBIN,TOTAL 13.1 mg/dL (0.2-1.0); CALCIUM, SERUM 8.1 mg/dL (8.5-10.1); CREATININE 1.3 mg/dL (0.6-1.3); PHOSPHORUS 3.1 mg/dL (2.5-4.9); POTASSIUM 3.3 mmol/L (3.5-5.1); TOTAL PROTEIN, SERUM 5.5 g/dL (6.4-8.2)
--- NOTE | 2019-11-02 06:35 | NUR ---
MS RN: END OF SHIFT REPORT Patient in bed, awake. Adequate oxygenation in room air. ADRIÁN Midline intact, PO/IV antibiotic as scheduled, low grade temp 99F, denies pain. Fall; skin; aspiration precaution maintained. Plan for ERCP removal/ replacement of stent on Sunday. GI following. Will endorse to oncoming RN.
--- NOTE | 2019-11-02 07:37 | NUR ---
MS RN OPENING NOTES RECEIVED PATIENT IN BED, ASLEEP. PATIENT BREATHING ON ROOM AIR; BREATHING IS EVEN AND UNLABORED; NO SOB NOTED AT THIS TIME. NO SIGNS OF PAIN SUCH FACIAL GRIMACING, MOANING OR GUARDING. ADRIÁN MIDLINE PRESENT AND INTACT INFUSING 1/2 NS @50 MLS/HR. SAFETY PRECAUTIONS IN PLACE; BED IN LOW POSITION AND LOCKED, RAILS UP X2, CALL LIGHT WITHIN REACH. WILL CONTINUE TO MONITOR.
[2019-11-02 08:00] VITALS: BP 136/72
[2019-11-02] MEDS: CITRIC ACID/SODIUM CITRATE (BICITRA)15 ML UDC PO SCH ×5 (08:36→22:05)
[2019-11-02] MEDS: CARVEDILOL 3.125 MG TABLET PO SCH ×2 (08:36→16:50)
[2019-11-02] MEDS: PANTOPRAZOLE 40 MG TABLET.DR PO SCH (08:36)
[2019-11-02] MEDS ORDERED: POTASSIUM CHLORIDE 20 MEQ POWDER PACKET PO ONE (11:30)
[2019-11-02] MEDS: CEFTRIAXONE 2 G in IV D5W 100 ML IV SCH (16:20)
--- NOTE | 2019-11-02 18:49 | NUR ---
MS RN CLOSING NOTES PATIENT IN BED, AWAKE, A/O X1. PATIENT BREATHING ON ROOM AIR; BREATHING IS EVEN AND UNLABORED; NO SOB NOTED AT THIS TIME. NO SIGNS OF PAIN SUCH FACIAL GRIMACING, MOANING OR GUARDING. ADRIÁN MIDLINE PRESENT AND INTACT INFUSING 1/2 NS @50 MLS/HR. ALL NEEDS ATTENDED TO THROUGHOUT THE DAY. PATIENT NPO AFTER MIDNIGHT. SAFETY PRECAUTIONS IN PLACE; BED IN LOW POSITION AND LOCKED, RAILS UP X2, CALL LIGHT WITHIN REACH. WILL ENDORSE TO MANAGER INDUSTRIAL NURSE.
--- NOTE | 2019-11-02 19:10 | NUR ---
MS RN OPENING NOTES: RECEIVED PATIENT IN BED, ASLEEP, AROUSABLE. REFUSED TO TALK. CALLED VIA FACETIME, PATIENT LISTENED TO THE BUT REFUSED TO TALK, JUST NODDING HIS HEAD. HOB ELEVATED AT 35 DEGREES. CALL LIGHT WITHIN REACH. BED ALARM ON. BED IN LOWEST AND LOCKED POSITION. NO SOB NOTED. NO COMPLAIN OF PAIN. NPO POST MN, EXPERIMENTAL OUTBOARD MOTORS MECHANIC MADE AWARE. REMINDED THE PATIENT. WITH COLOSTOMY ON THE RIGHT SIDE INTACT WITH MINIMAL BROWNISH LIQUIDY OUTPUT.
[2019-11-02] MEDS: IV 1/2NS 1000 ML 1,000 ML IV PRN (19:13)
[2019-11-02 20:00] VITALS: BP_SYST 113; BP_SYST 158; BP_DIAS 100; BP_DIAS 64
--- NOTE | 2019-11-02 20:34 | NUR ---
TELEPHONE CONSENT OBTAINED FROM THE ,CARMEL CASTILLO, WITNESSED ALSO BY THE LIFE MANAGER KIP, WITH BLOOD TRANSFUSION CONSENT,ATTACHED TO THE CHART.
[2019-11-02] MEDS: TAMSULOSIN 0.4 MG CAP.SR.24H PO SCH ×2 (22:00→22:05)
--- NOTE | 2019-11-02 22:26 | NUR ---
PATIENT UNABLE TO SWALLOW, PO MEDS HELD, INFORMED MD. ORAL SECRETIONS SUCTIONED.
[2019-11-03] VITALS (8 sets, daily range): BP systolic 90–127; BP diastolic 48–69
[2019-11-03] MEDS: METRONIDAZOLE 500 MG TABLET PO SCH ×3 (04:38→21:00)
--- NOTE | 2019-11-03 05:00 | NUR ---
MS RN CLOSING NOTES: PATIENT IN BED,ASLEEP AROUSABLE. HOB ELEVATED AT ALL TIMES. TURNED AND CHANGED POSITION. BLE OFFLOADED. CALL LIGHT WITHIN REACH. BED ALARM ON. BED IN LOWEST AND LOCKED POSITION.NPO. BLE LEG LACERATIONS WOUND TREATMENT DONE, XEROFORM APPLIED AND COVERED WITH MEPILEX DRESSING. MEPILEX DRESSING APPLIED TO THE SACRAL AREA. COLOSTOMY BAG INTACT, NO LEAKING NOTED. NO SKIN IRRITATIONS NOTED.
[2019-11-03 07:05] LABS: CALCIUM, SERUM 8.1 mg/dL (8.5-10.1); CREATININE 1.3 mg/dL (0.6-1.3); MAGNESIUM 2.2 mg/dL (1.8-2.4); PHOSPHORUS 2.9 mg/dL (2.5-4.9); POTASSIUM 3.3 mmol/L (3.5-5.1)
[2019-11-03 07:08] LABS: BASOPHILS % (AUTO) 0.2 % (0.0-2.0); EOSINOPHILS % (AUTO) 0.9 % (0.0-6.0); HEMATOCRIT 34 % (39-51); LYMPHOCYTES # (AUTO) 0.8 /CMM (0.8-4.8); LYMPHOCYTES % (AUTO) 6.2 % (20.0-44.0); MEAN CORPUSCULAR HGB CONC 32 g/dl (31.0-36.0); MEAN CORPUSCULAR VOLUME 101 fL (80-96); MONOCYTES # (AUTO) 0.5 /CMM (0.1-1.30); MONOCYTES % (AUTO) 3.5 % (2.0-12.0); NEUTROPHILS # (AUTO) 11.5 /CMM (1.8-8.9); NEUTROPHILS % (AUTO) 89.2 % (43.0-81.0); PLATELET COUNT (AUTO) 155 /CMM (150-450); RED BLOOD CELL COUNT(AUTO) 3.38 MIL/uL (4.5-6.0); WHITE BLOOD COUNT (AUTO) 12.9 K/uL (4.3-11.0)
[2019-11-03] MEDS: PANTOPRAZOLE 40 MG TABLET.DR PO SCH (07:30)
--- NOTE | 2019-11-03 08:00 | NUR ---
m/s medical sales: initial assessment received pt in bed awake, alert to self only. noted with gurgling sounds, suctioned oral prn. reality orientation provided prn.. pt for ercp today, kept pt npo. will continue to monitor.
[2019-11-03] MEDS: CITRIC ACID/SODIUM CITRATE (BICITRA)15 ML UDC PO SCH ×4 (08:55→21:00)
[2019-11-03] MEDS: CARVEDILOL 3.125 MG TABLET PO SCH ×2 (08:56→17:00)
[2019-11-03] MEDS ORDERED: POTASSIUM CHLORIDE 20 MEQ POWDER PACKET NG SCH (09:30)
[2019-11-03] MEDS ORDERED: IOHEXOL 240MG/ML 100 ML IV ONE (09:52)
[2019-11-03] MEDS ORDERED: INDOMETHACIN 50 MG SUPP.RECT ONE (09:53)
--- NOTE | 2019-11-03 09:56 | NUR ---
m/s cash specialist: notes pt was picked up by o.r. team via bed with chart accompanied by 1 nurse and tech.
--- NOTE | 2019-11-03 12:00 | NUR ---
m/s citrix administrator: notes received pt from recovery room with dx: s/p ercp. verbal report given by o.r. nurse saying stent was removed and placed a new stent by dr. hernandez (gi). vss, afebrile. pt appears sedated. will hold lunch (clear liquid). pt for swallow eval tomorrow per order. place call light within reach. will continue to monitor.
[2019-11-03] MEDS: POTASSIUM CL. PREMIX PERIPHER. 50 ML IV SCH ×2 (12:07→13:45)
--- NOTE | 2019-11-03 13:00 | NUR ---
m/s package delivery driver: notes pt remains sedated, held due medications.
[2019-11-03 13:05] LABS: EOSINOPHILS % (MANUAL) 2 % (0-4); LYMPHOCYTES % (MANUAL) 5 % (16-48); MONOCYTES % (MANUAL) 3 % (0-11.0); NEUTROPHILS % (MANUAL) 90 (42-76)
[2019-11-03] MEDS: CEFTRIAXONE 2 G in IV D5W 100 ML IV SCH (15:26)
--- NOTE | 2019-11-03 16:00 | NUR ---
m/s manager of housekeeping: notes pt remains dozing on and off, but arousable. facetime a couple of times and updated plan of care. will continue to monitor.
--- NOTE | 2019-11-03 16:35 | NUR ---
m/s filer helper: notes oral care rendered by bilingual customer service.
--- NOTE | 2019-11-03 18:45 | NUR ---
m/s it infrastructure manager: notes pt sounds asleep. resp. even and unlabored. no distress noted. will continue to monitor.
--- NOTE | 2019-11-03 19:05 | NUR ---
m/s apparel merchandiser: notes bedside report given to angela (rn) for continuity of care.
--- NOTE | 2019-11-03 19:30 | NUR ---
MS RN NOTE: PATIENT RESTING IN BED, NO ACUTE DISTRESS NOTED. BREATHING EVEN AND UNLABORED, NO SOB NOTED. OXYGEN AT [address] V[address] NC IN PL[address]. MIDLINE TO ADRIÁN IN PLACE, INFUSING 1/2NS AT 50ML/HR. BED LOCKED AND IN LOWEST POSITION, CALL LIGHT IN REACH. WILL CONTINUE TO MONITOR.
[2019-11-03] MEDS: TAMSULOSIN 0.4 MG CAP.SR.24H PO SCH (21:35)
--- NOTE | 2019-11-03 21:45 | NUR ---
MS RN NOTE: PATIENT MEDICATION HELD DUE TO PATIENT TOO SEDATED TO SWALLOW. PATIENT TO HAVE SWALLOW EVAL IN AM. PATIENT RESPONSIVE TO NAME AND TOUCH. BED LOCKED AND IN LOWEST POSITION, CALL LIGHT IN REACH. WILL CONTINUE TO MONITOR.
[2019-11-04] MEDS: IV 1/2NS 1000 ML 1,000 ML IV PRN (04:27)
[2019-11-04] MEDS: METRONIDAZOLE 500 MG TABLET PO SCH ×3 (04:28→21:01)
--- NOTE | 2019-11-04 06:10 | NUR ---
MS RN NOTE: PATIENT RESTING IN BED, NO ACUTE DISTRESS NOTED. BREATHING EVEN AND UNLABORED, NO SOB NOTED. OXYGEN AT 2 LPM VIA NC IN PLACE. MIDLINE TO ADRIÁN IN PLACE, INFUSING 1/2NS AT 50ML/HR. BED LOCKED AND IN LOWEST POSITION, CALL LIGHT IN REACH. WILL ENDORSE TO DAY NURSE TO CONTINUE WITH PLAN OF CARE.
[2019-11-04 06:42] LABS: ALANINE AMINOTRANSFERASE 89 U/L (12-78); ALBUMIN 1.6 g/dL (3.4-5.0); ALKALINE PHOSPHATASE 596 U/L (46-116); ASPARTATE AMINOTRANSFERASE 77 U/L (15-37); BILIRUBIN,TOTAL 12.4 mg/dL (0.2-1.0); CARBON DIOXIDE 20 mmol/L (21-32); CHLORIDE 115 mmol/L (98-107); CREATININE 1.7 mg/dL (0.6-1.3); GLUCOSE 66 mg/dL (74-106); MAGNESIUM 2.4 mg/dL (1.8-2.4); PHOSPHORUS 3.5 mg/dL (2.5-4.9); POTASSIUM 3.5 mmol/L (3.5-5.1); SODIUM SERUM 146 mmol/L (136-145); TOTAL PROTEIN, SERUM 5.7 g/dL (6.4-8.2); UREA NITROGEN, BLOOD 45 mg/dL (7-18)
[2019-11-04 07:01] LABS: BASOPHILS % (AUTO) 0.1 % (0.0-2.0); EOSINOPHILS % (AUTO) 1.9 % (0.0-6.0); HEMATOCRIT 32 % (39-51); HEMOGLOBIN 10.3 g/dL (13.5-17.5); LYMPHOCYTES # (AUTO) 0.7 /CMM (0.8-4.8); LYMPHOCYTES % (AUTO) 5.6 % (20.0-44.0); MEAN CORPUSCULAR HGB CONC 32 g/dl (31.0-36.0); MEAN CORPUSCULAR VOLUME 102 fL (80-96); MONOCYTES # (AUTO) 0.3 /CMM (0.1-1.30); MONOCYTES % (AUTO) 2.6 % (2.0-12.0); NEUTROPHILS % (AUTO) 89.8 % (43.0-81.0); PLATELET COUNT (AUTO) 159 /CMM (150-450); RED BLOOD CELL COUNT(AUTO) 3.16 MIL/uL (4.5-6.0); WHITE BLOOD COUNT (AUTO) 12.3 K/uL (4.3-11.0)
[2019-11-04 08:00] VITALS: BP 137/72
--- NOTE | 2019-11-04 08:08 | NUR ---
WOUND CARE CONSULT: PT PRESENTS WITH DRY/INTACT LEG DRESSINGS. PT FOLLOWED BY DPM FOR LOWER LEG WOUNDS. LESION NOTED TO LOWER LIP. RN TO DISCUSS WITH MD TODAY. PT NOTED TO BE JAUNDICED. WILL SEE PRN. CURRENT NICK SCORE IS 16.
--- NOTE | 2019-11-04 08:59 | NUR ---
received pt. awake and alert,oriented x1.weak, calling in and spoke to .iv infudsing.dr. bazan in and aware of pt. status.to review med orders.
[2019-11-04] MEDS: PANTOPRAZOLE 40 MG TABLET.DR PO SCH (09:53)
[2019-11-04] MEDS: CARVEDILOL 3.125 MG TABLET PO SCH ×2 (09:53→17:45)
[2019-11-04] MEDS: CITRIC ACID/SODIUM CITRATE (BICITRA)15 ML UDC PO SCH ×4 (09:54→21:01)
[2019-11-04 11:31] LABS: EOSINOPHILS % (MANUAL) 3 % (0-4); LYMPHOCYTES % (MANUAL) 4 % (16-48); MONOCYTES % (MANUAL) 4 % (0-11.0); NEUTROPHILS % (MANUAL) 89 (42-76)
--- NOTE | 2019-11-04 15:12 | NUR ---
SON AND CALLING OFTEN. HAD FACETIME WITH PT.
[2019-11-04] MEDS: CEFTRIAXONE 2 G in IV D5W 100 ML IV SCH (15:18)
[2019-11-04 16:00] VITALS: BP 120/60
--- NOTE | 2019-11-04 19:00 | NUR ---
RN MS OPENING NOTES RECEIVED PATIENT IN BED AWAKE ALERT AND ORIENTED X1, RESPIRATIONS EVEN AND UNLABORED WITH EQUAL RISE AND FALL OF CHEST, ON 2 L VIA NC TOLERATING WELL, SUCTION SET UP IN PLACE, LEFT UPPER ARM PICC LINE INTACT AND PATENT, DRESSING IS C/D/I. NPO REDNESS, NO INFILTRATION PRESENT, IVF RUNNING ORDERED,PATIENT REPOSITIONED, HEELS OFFLOADED WITH PILLOWS, HEAD OF BED ELEVATED FOR ASPIRATION PRECAUTIONS AND COMFORT, ORIENTED TO STAFF AND CALL LIGHT AND KEPT WITHIN REACH. REMAINS COMFORTABLE WILL CONTINUE TO MONITOR.
[2019-11-04 20:00] VITALS: BP_SYST 123; BP_DIAS 32; BP_DIAS 62
[2019-11-04] MEDS: TAMSULOSIN 0.4 MG CAP.SR.24H PO SCH (21:01)
[2019-11-05] MEDS: IV 1/2NS 1000 ML 1,000 ML IV PRN (02:38)
[2019-11-05] MEDS: METRONIDAZOLE 500 MG TABLET PO SCH ×3 (04:32→21:49)
--- NOTE | 2019-11-05 06:20 | NUR ---
RN MS CLOSING NOTES PATIENT IN BED AWAKE ALERT AND ORIENTED X1, RESPIRATIONS EVEN AND UNLABORED WITH EQUAL RISE AND FALL OF CHEST, ON 2 L VIA NC TOLERATING WELL ALSO TOLERATES ROOM AIR WELL, SUCTION SET UP IN PLACE, LEFT UPPER ARM PICC LINE INTACT AND PATENT, DRESSING IS C/D/I. NO REDNESS, NO INFILTRATION PRESENT, IVF RUNNING ORDERED,PATIENT REPOSITIONED, HEELS OFFLOADED WITH PILLOWS, WOUND CARE DONE ORDERED, SACRAL REMAINS INTACT , NO REDNESS, HEAD OF BED ELEVATED FOR ASPIRATION PRECAUTIONS AND COMFORT, CALL LIGHT KEPT WITHIN REACH. REMAINS COMFORTABLE WILL CONTINUE TO MONITOR AND ENDORSE TO NEXT SHIFT. COLOSTOMY BAG CLEAN AND INTACT , OUTPUT 50ML.
--- NOTE | 2019-11-05 07:55 | NUR ---
MS RN OPENING NOTE PATIENT IN BED RESTING COMFORTABLY. PATIENT IN NO ACUTE DISTRESS. NO SOB NOTED. PATIENT BREATHING IS EVEN AND UNLABORED. PATIENT BED ALARM IS ON. SAFETY PRECAUTIONS IN PLACE. ADRIÁN MIDLINE PATENT AND INTACT. COLOSTOMY BAG IS CLEAN AND INTACT. PATIENT BED IS LOCKED AND IN LOWEST POSITION. CALL LIGHT WITHIN REACH. WILL CONTINUE TO MONITOR.
[2019-11-05 08:00] VITALS: BP 119/60
[2019-11-05] MEDS: PANTOPRAZOLE 40 MG TABLET.DR PO SCH (08:33)
[2019-11-05] MEDS: CITRIC ACID/SODIUM CITRATE (BICITRA)15 ML UDC PO SCH ×4 (08:33→21:49)
[2019-11-05] MEDS: CARVEDILOL 3.125 MG TABLET PO SCH ×2 (08:34→16:51)
[2019-11-05 09:50] LABS: BASOPHILS % (AUTO) 0.1 % (0.0-2.0); EOSINOPHILS % (AUTO) 0.9 % (0.0-6.0); HEMATOCRIT 34 % (39-51); HEMOGLOBIN 10.9 g/dL (13.5-17.5); LYMPHOCYTES # (AUTO) 0.8 /CMM (0.8-4.8); MEAN CORPUSCULAR HGB CONC 32 g/dl (31.0-36.0); MEAN CORPUSCULAR VOLUME 103 fL (80-96); MONOCYTES # (AUTO) 0.7 /CMM (0.1-1.30); MONOCYTES % (AUTO) 5.7 % (2.0-12.0); NEUTROPHILS # (AUTO) 10.3 /CMM (1.8-8.9); NEUTROPHILS % (AUTO) 86.3 % (43.0-81.0); PLATELET COUNT (AUTO) 181 /CMM (150-450); RED BLOOD CELL COUNT(AUTO) 3.33 MIL/uL (4.5-6.0); WHITE BLOOD COUNT (AUTO) 11.9 K/uL (4.3-11.0)
[2019-11-05 10:02] LABS: ALANINE AMINOTRANSFERASE 82 U/L (12-78); ALBUMIN 1.6 g/dL (3.4-5.0); ALKALINE PHOSPHATASE 590 U/L (46-116); ASPARTATE AMINOTRANSFERASE 100 U/L (15-37); BILIRUBIN,TOTAL 12.2 mg/dL (0.2-1.0); CALCIUM, SERUM 8.1 mg/dL (8.5-10.1); CARBON DIOXIDE 21 mmol/L (21-32); CHLORIDE 113 mmol/L (98-107); CREATININE 1.5 mg/dL (0.6-1.3); GLUCOSE 70 mg/dL (74-106); POTASSIUM 3.6 mmol/L (3.5-5.1); SODIUM SERUM 146 mmol/L (136-145); TOTAL PROTEIN, SERUM 5.8 g/dL (6.4-8.2); UREA NITROGEN, BLOOD 38 mg/dL (7-18)
[2019-11-05 10:09] LABS: LYMPHOCYTES % (MANUAL) 4 % (16-48); MONOCYTES % (MANUAL) 4 % (0-11.0); NEUTROPHILS % (MANUAL) 92 (42-76)
--- NOTE | 2019-11-05 12:10 | NUR ---
MS RN NOTE PER SPEECH THERAPIST RECOMMENDATION FOR ENSURE WITH MEALS. PER CHARGE NURSE MAIRA DOTSON TO ORDER ENSURE PER SPEECH THERAPIST RECOMMENDATION.
[2019-11-05] MEDS: CEFTRIAXONE 2 G in IV D5W 100 ML IV SCH (14:28)
[2019-11-05 16:00] VITALS: BP 140/53
[2019-11-05] MEDS: ENSURE ENLIVE CHOC 237 ML CAN PO SCH (16:52)
--- NOTE | 2019-11-05 18:55 | NUR ---
MS RN CLOSING NOTE PATIENT IN BED RESTING COMFORTABLY. PATIENT IN NO ACUTE DISTRESS. NO SOB NOTED. PATIENT BREATHING IS EVEN AND UNLABORED. PATIENT BED ALARM IS ON. SAFETY PRECAUTIONS IN PLACE. ADRIÁN MIDLINE PATENT AND INTACT. COLOSTOMY BAG IS CLEAN AND INTACT. PATIENT KEPT CLEAN, DRY, AND COMFORTABLE THROUGHOUT SHIFT. PATIENT HOB IS ELEVATED. ENCOURAGED PO INTAKE THROUGHOUT MY SHIFT. PATIENT BED IS LOCKED AND IN LOWEST POSITION. CALL LIGHT WITHIN REACH. WILL ENDORSE CARE TO PM SHIFT FOR ARNAUD. Addendum: 11/05/19 at 1903 by MICKEY LAWRENCE RN MS RN CLOSING NOTE PATIENT IN BED RESTING COMFORTABLY. PATIENT IN NO ACUTE DISTRESS. NO SOB NOTED. PATIENT BREATHING IS EVEN AND UNLABORED. PATIENT BED ALARM IS ON. SAFETY PRECAUTIONS IN PLACE. ADRIÁN MIDLINE PATENT AND INTACT. COLOSTOMY BAG IS CLEAN AND INTACT. PATIENT KEPT CLEAN, DRY, AND COMFORTABLE THROUGHOUT SHIFT. PATIENT TURNED AND REPOSITIONED Q2H. PATIENT HOB IS ELEVATED. ENCOURAGED PO INTAKE THROUGHOUT MY SHIFT. PATIENT BED IS LOCKED AND IN LOWEST POSITION. CALL LIGHT WITHIN REACH. WILL ENDORSE CARE TO PM SHIFT FOR ARNAUD.
--- NOTE | 2019-11-05 19:00 | NUR ---
RN MS OPENING NOTES PATIENT IN BED AWAKE ALERT AND ORIENTED X1, RESPIRATIONS EVEN AND UNLABORED WITH EQUAL RISE AND FALL OF CHEST, ON 2 L VIA NC TOLERATING WELL SUCTION SET UP IN PLACE, LEFT UPPER ARM MID LINE INTACT AND PATENT, DRESSING IS C/D/I. NO REDNESS, NO INFILTRATION PRESENT, IVF RUNNING ORDERED,PATIENT REPOSITIONED, HEELS OFFLOADED WITH PILLOWS, HEAD OF BED ELEVATED FOR ASPIRATION PRECAUTIONS AND COMFORT, CALL LIGHT KEPT WITHIN REACH, ORIENTED TO STAFF, REMAINS COMFORTABLE WILL CONTINUE TO MONITOR AND ATTEND TO NEEDS, COLOSTOMY BAG CLEAN AND INTACT.
[2019-11-05 20:00] VITALS: BP 128/55
--- NOTE | 2019-11-05 20:30 | NUR ---
rn ms notes facetime with guido, patient remains stable at this\
--- NOTE | 2019-11-05 20:34 | NUR ---
rn ms notes facetime with guido, patient remains stable at this time.
[2019-11-05] MEDS: TAMSULOSIN 0.4 MG CAP.SR.24H PO SCH (21:49)
[2019-11-06] MEDS: IV 1/2NS 1000 ML 1,000 ML IV PRN (02:20)
[2019-11-06] MEDS: METRONIDAZOLE 500 MG TABLET PO SCH ×3 (05:15→21:12)
--- NOTE | 2019-11-06 06:29 | NUR ---
ELOISA MS OPENING NOTES PATIENT IN BED AWAKE ALERT AND ORIENTED X1, RESPIRATIONS EVEN AND UNLABORED WITH EQUAL RISE AND FALL OF CHEST, ON 2 L VIA NC TOLERATING WELL SUCTION SET UP IN PLACE, LEFT UPPER ARM MID LINE INTACT AND PATENT, DRESSING IS C/D/I. NO REDNESS, NO INFILTRATION PRESENT, IVF RUNNING ORDERED,PATIENT REPOSITIONED, HEELS OFFLOADED WITH PILLOWS, HEAD OF BED ELEVATED FOR ASPIRATION PRECAUTIONS AND COMFORT, CALL LIGHT KEPT WITHIN REACH, ORIENTED TO STAFF, REMAINS COMFORTABLE WILL CONTINUE TO MONITOR AND ATTEND TO NEEDS, COLOSTOMY BAG CLEAN AND INTACT. Addendum: 11/06/19 at 0678 by BRENDA VALLADARES RN disregard note
--- NOTE | 2019-11-06 06:30 | NUR ---
RN MS CLOSING NOTES PATIENT IN BED AWAKE ALERT AND ORIENTED X1, RESPIRATIONS EVEN AND UNLABORED WITH EQUAL RISE AND FALL OF CHEST, ON 2 L VIA NC TOLERATING WELL SUCTION SET UP IN PLACE, LEFT UPPER ARM MID LINE INTACT AND PATENT, DRESSING IS C/D/I. NO REDNESS, NO INFILTRATION PRESENT, IVF RUNNING ORDERED,PATIENT REPOSITIONED, HEELS OFFLOADED WITH PILLOWS, HEAD OF BED ELEVATED FOR ASPIRATION PRECAUTIONS AND COMFORT, SACRAL SKIN INTACT, NO REDNESS REPOSITIONED Q2HRS. CALL LIGHT KEPT WITHIN REACH, ASPIRATION PRECAUTIONS RENDERED, ATTEMPTED TO PROVIDE ORAL HYGIENE HOWEVER PATIENT WAS REFUSING ABLE TO CLEAN A LITTLE.REMAINS COMFORTABLE WILL CONTINUE TO MONITOR AND ATTEND TO NEEDS, COLOSTOMY BAG CLEAN AND INTACT, WILL ENDORSE TO NEXT SHIFT.
[2019-11-06 08:00] VITALS: BP 134/86
[2019-11-06] MEDS: PANTOPRAZOLE 40 MG TABLET.DR PO SCH (08:24)
[2019-11-06] MEDS: CARVEDILOL 3.125 MG TABLET PO SCH ×2 (08:24→16:44)
[2019-11-06] MEDS: CITRIC ACID/SODIUM CITRATE (BICITRA)15 ML UDC PO SCH ×4 (08:24→21:11)
[2019-11-06] MEDS: ENSURE ENLIVE CHOC 237 ML CAN PO SCH ×3 (08:24→16:44)
[2019-11-06] MEDS ORDERED: METR500T PO (10:13)
[2019-11-06] MEDS: CEFTRIAXONE 2 G in IV D5W 100 ML IV SCH (14:22)
[2019-11-06 16:00] VITALS: BP 124/62
--- NOTE | 2019-11-06 18:13 | NUR ---
MS RN END OF SHIFT SUMMARY PT IS ORIENTED TO SELF ONLY, AFEBRILE. RESPIRATIONS ARE EVEN AND UNLABORED, NOT IN ANY ACUTE DISTRESS NOTED. ABDOMEN IS SOFT AND NONDISTENDED, BOWEL SOUNDS ARE PRESENT IN ALL 4 QUADRANTS UPON AUSCULTATION. +FLATUS, COLOSTOMY POUCHED CHANGED X1, LOOSE STOOL. VOIDS AND IS INCONTINENT. PIV INTACT, INFUSING 1/2NS @50ML/HR. ALL NEEDS MET AND RENDERED. SAFETY MEASURES ARE IN PLACE. CALL LIGHT IS LEFT WITHIN REACH. WILL MONITOR AND CONTINUE POC.
--- NOTE | 2019-11-06 19:10 | NUR ---
MS RN NOTES RECEIVED PT IN BED RESTING. PT A/O X1. RESPIRATIONS EVEN AND UNLABORED WITH NO S/S OF ACUTE DISTRESS OR SOB NOTED. NO S/S OF PAIN AT THIS TIME. SAFETY MEASURES IN PLACE WITH BED IN LOWEST LOCKED POSITION WITH SIDE RAILS UPX2 CALL LIGHT WITHIN REACH. WILL CONTINUE TO MONITOR.
[2019-11-06 20:00] VITALS: BP 145/67
[2019-11-06] MEDS: TAMSULOSIN 0.4 MG CAP.SR.24H PO SCH (21:12)
[2019-11-07] MEDS: IV 1/2NS 1000 ML 1,000 ML IV PRN ×2 (01:04→22:55)
[2019-11-07] MEDS: METRONIDAZOLE 500 MG TABLET PO SCH ×3 (05:44→21:05)
--- NOTE | 2019-11-07 07:52 | NUR ---
MS RN NOTES PT IN BED RESTING. PT A/O X1. RESPIRATIONS EVEN AND UNLABORED WITH NO S/S OF ACUTE DISTRESS OR SOB NOTED THROUGHOUT SHIFT. PT KEPT CLEAN, DRY, AND COMFORTABLE. NO S/S OF PAIN AT THIS TIME. SAFETY MEASURES IN PLACE WITH BED IN LOWEST LOCKED POSITION WITH SIDE RAILS UPX2 CALL LIGHT WITHIN REACH. WILL ENDORSE TO ONCOMING NURSE FOR ARNAUD.
[2019-11-07 08:00] VITALS: BP 134/70
[2019-11-07] MEDS: PANTOPRAZOLE 40 MG TABLET.DR PO SCH (08:42)
[2019-11-07] MEDS: CHLORHEXIDINE GLUCONATE 15 ML UDC MM SCH ×2 (08:42→16:08)
[2019-11-07] MEDS: CARVEDILOL 3.125 MG TABLET PO SCH ×2 (08:42→16:09)
[2019-11-07] MEDS: ENSURE ENLIVE CHOC 237 ML CAN PO SCH ×3 (08:42→16:08)
[2019-11-07] MEDS: CITRIC ACID/SODIUM CITRATE (BICITRA)15 ML UDC PO SCH ×4 (08:42→21:05)
[2019-11-07] MEDS: CEFTRIAXONE 2 G in IV D5W 100 ML IV SCH (14:35)
[2019-11-07 16:00] VITALS: BP 118/77
--- NOTE | 2019-11-07 18:14 | NUR ---
MS RN END OF SHIFT SUMMARY PT IS ORIENTED TO SELF ONLY, AFEBRILE. RESPIRATIONS ARE EVEN AND UNLABORED, NOT IN ANY ACUTE DISTRESS NOTED. ABDOMEN IS SOFT AND NONDISTENDED, BOWEL SOUNDS ARE PRESENT IN ALL 4 QUADRANTS UPON AUSCULTATION. +FLATUS, COLOSTOMY POUCHED EMPTIED, LOOSE STOOL. VOIDS AND IS INCONTINENT. PIV INTACT, INFUSING 1/2NS @50ML/HR. ALL NEEDS MET AND RENDERED. SAFETY MEASURES ARE IN PLACE. CALL LIGHT IS LEFT WITHIN REACH. WILL MONITOR AND CONTINUE POC.
[2019-11-07 20:00] VITALS: BP 147/73
--- NOTE | 2019-11-07 20:15 | NUR ---
MS RN NOTES PT REFUSED VITALS AT THIS TIME. PT STATED "I JUST WANT TO BE LEFT ALONE, PLEASE LEAVE ME ALONE." WILL CONTINUE TO MONITOR.
[2019-11-07] MEDS: TAMSULOSIN 0.4 MG CAP.SR.24H PO SCH (21:05)
[2019-11-08] MEDS: METRONIDAZOLE 500 MG TABLET PO SCH ×3 (05:42→21:22)
--- NOTE | 2019-11-08 06:50 | NUR ---
MS RN NOTES PT IN BED RESTING. PT A/O X1. RESPIRATIONS EVEN AND UNLABORED WITH NO S/S OF ACUTE DISTRESS OR SOB NOTED THROUGHOUT SHIFT. NO S/S OF PAIN AT THIS TIME. PT KEPT CLEAN, DRY, AND COMFORTABLE. SAFETY MEASURES IN PLACE WITH BED IN LOWEST LOCKED POSITION WITH SIDE RAILS UPX2 CALL LIGHT WITHIN REACH. WILL ENDORSE TO ONCOMING SHIFT FOR ARNAUD.
[2019-11-08 08:00] VITALS: BP 133/67
[2019-11-08 08:00] LABS: BASOPHILS # (AUTO) 0.1 /CMM (0.0-0.2); EOSINOPHILS % (AUTO) 1.4 % (0.0-6.0); HEMATOCRIT 30 % (39-51); HEMOGLOBIN 9.7 g/dL (13.5-17.5); LYMPHOCYTES # (AUTO) 0.8 /CMM (0.8-4.8); LYMPHOCYTES % (AUTO) 9.7 % (20.0-44.0); MEAN CORPUSCULAR HGB CONC 33 g/dl (31.0-36.0); MEAN CORPUSCULAR VOLUME 103 fL (80-96); MONOCYTES # (AUTO) 0.5 /CMM (0.1-1.30); MONOCYTES % (AUTO) 6.2 % (2.0-12.0); NEUTROPHILS # (AUTO) 6.5 /CMM (1.8-8.9); NEUTROPHILS % (AUTO) 81.7 % (43.0-81.0); PLATELET COUNT (AUTO) 194 /CMM (150-450); RED BLOOD CELL COUNT(AUTO) 2.89 MIL/uL (4.5-6.0)
[2019-11-08] MEDS: PANTOPRAZOLE 40 MG TABLET.DR PO SCH (08:43)
[2019-11-08] MEDS: CITRIC ACID/SODIUM CITRATE (BICITRA)15 ML UDC PO SCH ×4 (08:43→21:22)
[2019-11-08] MEDS: CARVEDILOL 3.125 MG TABLET PO SCH ×2 (08:44→17:12)
[2019-11-08] MEDS: CHLORHEXIDINE GLUCONATE 15 ML UDC MM SCH ×2 (08:44→17:12)
[2019-11-08] MEDS: ENSURE ENLIVE CHOC 237 ML CAN PO SCH ×3 (08:44→17:12)
[2019-11-08 09:03] LABS: ALANINE AMINOTRANSFERASE 76 U/L (12-78); ALBUMIN 1.5 g/dL (3.4-5.0); ALKALINE PHOSPHATASE 503 U/L (46-116); ASPARTATE AMINOTRANSFERASE 116 U/L (15-37); BILIRUBIN,TOTAL 12.8 mg/dL (0.2-1.0); CALCIUM, SERUM 7.8 mg/dL (8.5-10.1); CARBON DIOXIDE 21 mmol/L (21-32); CHLORIDE 111 mmol/L (98-107); CREATININE 1.4 mg/dL (0.6-1.3); GLUCOSE 85 mg/dL (74-106); POTASSIUM 3.3 mmol/L (3.5-5.1); SODIUM SERUM 143 mmol/L (136-145); TOTAL PROTEIN, SERUM 6.2 g/dL (6.4-8.2); UREA NITROGEN, BLOOD 23 mg/dL (7-18)
[2019-11-08 09:34] LABS: BAND % (MANUAL) 3 % (0.0-5.0); EOSINOPHILS % (MANUAL) 1 % (0-4); LYMPHOCYTES % (MANUAL) 5 % (16-48); MONOCYTES % (MANUAL) 2 % (0-11.0); NEUTROPHILS % (MANUAL) 89 (42-76)
[2019-11-08] MEDS: CEFTRIAXONE 2 G in IV D5W 100 ML IV SCH (14:04)
[2019-11-08 16:00] VITALS: BP 124/74
[2019-11-08] MEDS: IV 1/2NS 1000 ML 1,000 ML IV PRN (18:22)
--- NOTE | 2019-11-08 18:29 | NUR ---
MS RN END OF SHIFT SUMMARY PT IS ORIENTED TO SELF ONLY, AFEBRILE. RESPIRATIONS ARE EVEN AND UNLABORED, NOT IN ANY ACUTE DISTRESS NOTED. ABDOMEN IS SOFT AND NONDISTENDED, BOWEL SOUNDS ARE PRESENT IN ALL 4 QUADRANTS UPON AUSCULTATION. +FLATUS, COLOSTOMY EMPTIED WITH 300CC OUT, LOOSE STOOL. VOIDS AND IS INCONTINENT. PIV INTACT, INFUSING 1/2NS @50ML/HR. ALL NEEDS MET AND RENDERED. SAFETY MEASURES ARE IN PLACE. CALL LIGHT IS LEFT WITHIN REACH. WILL MONITOR AND CONTINUE POC.
--- NOTE | 2019-11-08 19:05 | NUR ---
RN OPENING NOTES Received patient awake on bed, A/O x1. No s/sx of discomfort noted. On aspiration precautions. Will continue to monitor accordingly.
[2019-11-08 20:00] VITALS: BP 115/58
[2019-11-08] MEDS: TAMSULOSIN 0.4 MG CAP.SR.24H PO SCH (21:22)
[2019-11-09] MEDS: METRONIDAZOLE 500 MG TABLET PO SCH ×3 (04:48→22:41)
--- NOTE | 2019-11-09 06:04 | NUR ---
RN CLOSING NOTES Patient asleep on bed, on O2 inhalation via NC @ 2LPM, saturating well. Pt tolerated due meds crushed given with pudding but patient noted with poor oral intake. All nursing needs attended. No new unusualities noted. Kept on bed clean, dry and comfortable. On fall and aspiration precautions. Endorsed.
[2019-11-09 06:48] LABS: BASOPHILS % (AUTO) 0.5 % (0.0-2.0); HEMATOCRIT 29 % (39-51); HEMOGLOBIN 9.1 g/dL (13.5-17.5); LYMPHOCYTES # (AUTO) 0.5 /CMM (0.8-4.8); MEAN CORPUSCULAR HGB CONC 32 g/dl (31.0-36.0); MEAN CORPUSCULAR VOLUME 104 fL (80-96); MONOCYTES # (AUTO) 0.4 /CMM (0.1-1.30); MONOCYTES % (AUTO) 6.2 % (2.0-12.0); NEUTROPHILS # (AUTO) 5.5 /CMM (1.8-8.9); NEUTROPHILS % (AUTO) 84.3 % (43.0-81.0); PLATELET COUNT (AUTO) 186 /CMM (150-450); RED BLOOD CELL COUNT(AUTO) 2.74 MIL/uL (4.5-6.0); WHITE BLOOD COUNT (AUTO) 6.5 K/uL (4.3-11.0)
--- NOTE | 2019-11-09 07:31 | NUR ---
MS/RN OPENING NOTES RECEIVED PATIENT SLEEPING ON BED. ALERT AND ORIENTED X1. PATIENT IN NO APPARENT RESPIRATORY DISTRESS NOTED. NO SIGN AND SYMPTOM PAIN AT THIS TIME. WILL CONTINUE TO MONITOR.
[2019-11-09] MEDS: PANTOPRAZOLE 40 MG TABLET.DR PO SCH (07:45)
--- NOTE | 2019-11-09 08:30 | NUR ---
MS/RN NOTES PATIENT REFUSED TO EAT BREAKFAST.PATIENT DRINK THE ENSURE 75% ONLY. EXPLAINED THE RISK AND BENEFITS. MD IS AWARE. WILL CONTINUE TO MONITOR.
[2019-11-09] MEDS: CHLORHEXIDINE GLUCONATE 15 ML UDC MM SCH ×2 (08:55→16:56)
[2019-11-09] MEDS: CITRIC ACID/SODIUM CITRATE (BICITRA)15 ML UDC PO SCH ×5 (08:55→22:41)
[2019-11-09] MEDS: ENSURE ENLIVE CHOC 237 ML CAN PO SCH ×3 (09:00→17:03)
[2019-11-09] MEDS: CARVEDILOL 3.125 MG TABLET PO SCH ×2 (09:00→16:56)
--- NOTE | 2019-11-09 09:09 | NUR ---
MS/RN NOTES PATIENT BP 114/61 HR 70BPM. WILL CONTINUE TO MONITOR.
[2019-11-09] MEDS ORDERED: POTASSIUM CHLORIDE 20 MEQ TAB.PRT.SR PO ONE (09:30)
[2019-11-09 10:00] VITALS: BP 114/61
[2019-11-09 10:39] LABS: BILIRUBIN,TOTAL 12.6 mg/dL (0.2-1.0); CALCIUM, SERUM 7.8 mg/dL (8.5-10.1); CREATININE 1.3 mg/dL (0.6-1.3); POTASSIUM 3.3 mmol/L (3.5-5.1); TOTAL PROTEIN, SERUM 5.9 g/dL (6.4-8.2)
[2019-11-09 10:49] LABS: ALBUMIN 1.4 g/dL (3.4-5.0)
--- NOTE | 2019-11-09 11:17 | NUR ---
MS/RN NOTES ALBUMIN 1.4 MD IS AWARE. NO NEW ORDER AT THIS TIME.
--- NOTE | 2019-11-09 12:06 | NUR ---
MS/RN NOTES PATIENT REFUSED TO EAT THE LUNCH. INITIATED TO GIVE THE ENSURE BUT HE STILL REFUSING . EXPLAINED THE RISK AND BENEFITS. WILL CONTINUE TO MONITOR.
[2019-11-09] MEDS: CEFTRIAXONE 2 G in IV D5W 100 ML IV SCH (15:11)
[2019-11-09] MEDS: IV 1/2NS 1000 ML 1,000 ML IV PRN (15:13)
[2019-11-09 16:37] VITALS: BP 110/62
--- NOTE | 2019-11-09 18:42 | NUR ---
MS/RN CLOSING NOTES PATIENT IS ON BED. ALERT AND ORIENTED X1. PATIENT IN NO APPARENT RESPIRATORY DISTRESS NOTED. NO SIGN AND SYMPTOM OF PAIN NOTED. IV ACCESS AT LEFT UPPER ARM MIDLINE WITH IV FLUID OF 1/2 NS 1 L AT 50 ML/HR ON AND INFUSING WELL. SEEN AND EXAMINED BY MD WITH ORDERS MADE AND CARRIED OUT. ALL DUE MEDICATION WAS GIVEN. KEEP PATIENT CLEAN, DRY AND COMFORTABLE THE WHOLE TIME. CHECKED AND TURNED PATIENT EVERY 2 HOURS. SAFETY PRECAUTION IN PLACED. BED IN LOWEST POSITION AND LOCKED. SIDE RAILS UP X 2. CALL LIGHT WITHIN REACH. WILL ENDORSED TO BUILDING MATERIALS SALES ATTENDANT FOR ARNAUD.
--- NOTE | 2019-11-09 19:15 | NUR ---
MS RN OPENING NOTES: RECEIVED PATIENT IN BED, AWAKE SLIGHTLY SLEEPY, NO SOB NOTED. NOT IN PAIN. HOB ELEVATED. WITH O2 AT 2L/MIN. WITH RIGHT SIDE COLOSTOMY, BAG IS INTACT, NO LEAKING, DRAINING A BROWNISH COLOR LIQUID OUTPUT. BED ALARM ON. BED IN LOWEST AND LOCKED POSITION. CALL LIGHT WITHIN REACH. PATIENT IS JAUNDICED. PER REPORTS FROM DAYSHIFT,PATIENT DID NOT EAT HIS MEALS,ENCOURAGED BUT STILL REFUSED, MD AWARE. PATIENT ONLY CONSUMED VERY SMALL AMOUNT OF ENSURE DRINKS.
[2019-11-09 19:59] VITALS: BP 115/60
[2019-11-09 20:00] VITALS: BP 115/60
[2019-11-09] MEDS: TAMSULOSIN 0.4 MG CAP.SR.24H PO SCH (22:41)
--- NOTE | 2019-11-09 23:05 | NUR ---
PATIENT TOOK ENSURE NUTRITIONAL DRINKS ONLY 50ML, ENCOURAGED TO DRINK MORE, REFUSED TO HAVE MORE.
[2019-11-10] MEDS: METRONIDAZOLE 500 MG TABLET PO SCH ×3 (06:20→21:13)
--- NOTE | 2019-11-10 07:03 | NUR ---
MS RN CLOSING NOTES: PATIENT IN BED, ASLEEP,AROUSABLE, NO COMPLAIN OF PAIN. NO SOB NOTED. CALL LIGHT WITHIN REACH. BED ALARM ON. BED IN LOWEST AND LOCKED POSITION. HOB ELEVATED AT ALL TIMES. PATIENT STILL JAUNDICED.
--- NOTE | 2019-11-10 07:34 | NUR ---
MS/RN OPENING NOTES Received patient in bed, A&O x 1. No complaints of pain/discomfort at this time. Breathing even and non-labored on 2L via NC, no SOB noted. No cardiac distress noted. Midline access noted ADRIÁN, patent and intact, and running 1/2NS at 50 mls/hr. Colostomy bag in place, no leaking, brown output noted. Dressings on the left knee, left lower leg, and right lower leg are clean, dry, and intact. Sensation from all peripheral extremities intact. Will continue to encourage oral intake throughout the shift. Fall precautions maintained. Will continue to monitor patient for any changes of condition.
[2019-11-10 08:00] VITALS: BP 114/60
[2019-11-10] MEDS: CHLORHEXIDINE GLUCONATE 15 ML UDC MM SCH ×2 (08:25→16:46)
[2019-11-10] MEDS: CITRIC ACID/SODIUM CITRATE (BICITRA)15 ML UDC PO SCH ×4 (08:25→21:13)
[2019-11-10] MEDS: PANTOPRAZOLE 40 MG TABLET.DR PO SCH (08:25)
[2019-11-10] MEDS: CARVEDILOL 3.125 MG TABLET PO SCH ×2 (08:26→16:46)
[2019-11-10] MEDS: ENSURE ENLIVE CHOC 237 ML CAN PO SCH ×3 (08:27→16:47)
--- NOTE | 2019-11-10 09:15 | NUR ---
WOUND CARE CONSULT: RECEIVED CONSULT FOR SKIN TEAR ON LEFT KNEE. RECOMMENDATIONS MADE FOR SKIN PROTECTION AND WOUND CARE. DISCUSSED WITH NURSING STAFF. WILL SEE PRN. TONG IN AGREEMENT WITH PLAN OF CARE. Addendum: 11/10/19 at 0916 by ANURADHA TERRELL WNDNU Amended: Links added.
--- NOTE | 2019-11-10 15:15 | NUR ---
MS/RN NOTES Called pharmacy to follow up ceftriaxone antibiotic, states they're bringing it up.
[2019-11-10 16:00] VITALS: BP 114/63
[2019-11-10 16:03] LABS: ALANINE AMINOTRANSFERASE 72 U/L (12-78); ALKALINE PHOSPHATASE 467 U/L (46-116); ASPARTATE AMINOTRANSFERASE 127 U/L (15-37); BILIRUBIN,TOTAL 14.1 mg/dL (0.2-1.0); CARBON DIOXIDE 21 mmol/L (21-32); CHLORIDE 107 mmol/L (98-107); CREATININE 1.4 mg/dL (0.6-1.3); GLUCOSE 83 mg/dL (74-106); POTASSIUM 3.3 mmol/L (3.5-5.1); SODIUM SERUM 140 mmol/L (136-145); TOTAL PROTEIN, SERUM 6.4 g/dL (6.4-8.2); UREA NITROGEN, BLOOD 21 mg/dL (7-18)
[2019-11-10] MEDS: CEFTRIAXONE 2 G in IV D5W 100 ML IV SCH (16:20)
[2019-11-10] MEDS: IV 1/2NS 1000 ML 1,000 ML IV PRN (16:24)
[2019-11-10 16:27] LABS: ALBUMIN 1.4 g/dL (3.4-5.0)
--- NOTE | 2019-11-10 16:30 | NUR ---
MS/RN NOTES CONTACTED DR. IRNEE REGARDING LOW ALBUMIN 1.4, STATES NO NEW ORDERS AT THIS TIME.
--- NOTE | 2019-11-10 19:10 | NUR ---
MS/RN PM OPENING NOTES BEDSIDE REPORT RECIEVED FROM EMRE AMIN. PT IN BED IN NO APPARENT DISTRESS. BREATHING EVEN AND UNLABORED ON 2LNC MIDONE ADRIÁN PATENT WITH NO S/S OF INFILTRATION. RUNNING IVF ORDERED. NO APPARENT PAIN DISCOMFORT PER FLACC SCALE. COLOSTOMY BAG INTACT NO LEAKING NOTED. FALL PRECAUTIONS IN PLACE BED DOWN LOCKED BED ALARM ACTIVE SRX3. WILL CONT TO MONITOR.
--- NOTE | 2019-11-10 19:26 | NUR ---
MS/RN CLOSING NOTES Patient resting in bed, A&O x 1. Breathing even and non-labored on 2L via NC, no SOB noted. No cardiac distress noted. Midline access noted ADRIÁN, patent and intact, and running 1/2NS at 50 mls/hr. Denies any pain/discomfort at this time. Colostomy bag in place, no leaking, brown output noted of 20 cc. Sensation from all peripheral extremities intact. Fall precautions maintained. Patient had low appetite today, will endorse to fashion editor nurse to encourage oral intake.
[2019-11-10 20:24] VITALS: BP 104/56
[2019-11-10] MEDS: TAMSULOSIN 0.4 MG CAP.SR.24H PO SCH (21:13)
--- NOTE | 2019-11-11 04:00 | NUR ---
pt found to have midline partially pulled out. upon assessment it appears half of line is out. midline removed pressure dressing appied. pt as no s/s of redness irritation at the site. new iv started to left forearm 22 gauge.
--- NOTE | 2019-11-11 07:30 | NUR ---
MS/RN OPENING NOTES Received patient in bed, A&O x 2, verbally responsive. Patient denies any pain/discomfort at this time. Breathing even and non-labored on 2L via NC, no SOB noted. No cardiac distress noted. IV access located on L forearm #22, patent and intact, and running 1/2NS at 50 mls/hr. No s/s of infiltration, infection, or bleeding noted. Colostomy bag in place, no leaks, brown output noted. Dressings on the left knee, left lower leg, and right lower leg are clean, dry, and intact. Sensation from all peripheral extremities intact. Jaundiced skin noted. Will continue to encourage oral intake throughout the shift. Fall precautions maintained. Will continue to monitor patient for any changes of condition.
[2019-11-11 08:00] VITALS: BP 100/54
[2019-11-11] MEDS: PANTOPRAZOLE 40 MG TABLET.DR PO SCH (08:24)
[2019-11-11] MEDS: CHLORHEXIDINE GLUCONATE 15 ML UDC MM SCH ×2 (08:24→17:11)
[2019-11-11] MEDS: POTASSIUM CL. PREMIX PERIPHER. 50 ML IV SCH ×4 (08:24→12:18)
[2019-11-11] MEDS: CITRIC ACID/SODIUM CITRATE (BICITRA)15 ML UDC PO SCH ×4 (08:24→20:22)
[2019-11-11] MEDS: CARVEDILOL 3.125 MG TABLET PO SCH ×2 (08:25→17:11)
[2019-11-11] MEDS: ENSURE ENLIVE CHOC 237 ML CAN PO SCH ×3 (08:26→17:11)
--- NOTE | 2019-11-11 11:27 | NUR ---
CARLITOS collaborated with BETTE Koroma and Dr. Muller. Per Dr. Muller, he will call the and son to discuss hospice/further plan of care prior to having a bioethics meeting. CARLITOS updated MS3 DELONTE uNñez with aforementioned information.
[2019-11-11] MEDS ORDERED: POTASSIUM CL. PREMIX PERIPHER. 50 ML ONE (13:10)
--- NOTE | 2019-11-11 13:15 | NUR ---
MS/RN NOTES OVERRIDE POTASSIUM ORDER, ALREADY GAVE 4 BAGS 10 MEQ, PER DOCTOR ANDONIAN'S ORDER.
[2019-11-11 16:00] VITALS: BP 131/66
--- NOTE | 2019-11-11 19:18 | NUR ---
MS/RN CLOSING NOTES Patient resting in bed, A&O x 2, remains verbally responsive to tactile and verbal stimulation. No s/s of pain/discomfort noted. Breathing even and non-labored on 2L via NC. No respiratory or cardiac distress noted. IV access located on L forearm #22, patent and intact, and running 1/2NS at 50 mls/hr. No s/s of infiltration, infection, or bleeding noted. Colostomy bag in place, clean and intact, 20 cc of brown output noted. Sensation from all peripheral extremities intact. Fall precautions maintained. Gwyn, his son, called and asked if he could be released/discharged tomorrow, notified charge nurse and case management. Will endorse to security shift manager nurse.
[2019-11-11] MEDS: IV 1/2NS 1000 ML 1,000 ML IV PRN (19:24)
--- NOTE | 2019-11-11 19:38 | NUR ---
MS AMIN OPEN NOTES PATIENT IS LAYING IN BED. A/O X2 WITH PERIODS OF CONFUSION. PT KEEPS STATING SHE NEEDS TO GO TO THE DENTIST. ON RA, NO SOB/ ACUTE RESPIRATORY DISTRESS NOTED. NO COMPLAINTS OF PAIN AT THE MOMENT. BED IS IN LOWEST LOCKED POSITION WITH SIDE RAILS UP X3, SEMI FOWLERS. CALL LIGHT IS WITHIN REACH. WILL CONTINUE TO MONITOR. Addendum: 11/11/19 at 1940 by ADALBERTO CHAVEZ RN OPEN NOTES FOR WRONG PATIENT
--- NOTE | 2019-11-11 19:42 | NUR ---
MS RN OPEN NOTES PATIENT IS LAYING IN BED. A/O X2. ON 2L NASAL CANULA, NO SOB/ ACUTE RESPIRATORY DISTRESS NOTED. APPEARS COMFORTABLE/ NO COMPLAINTS OF PAIN AT THE MOMENT. BED IS IN LOWEST LOCKED POSITION WITH SIDE RAILS UP X3, SEMI FOWLERS. CALL LIGHT IS WITHIN REACH. WILL CONTINUE TO MONITOR.
[2019-11-11 20:37] VITALS: BP 90/46
[2019-11-11] MEDS: TAMSULOSIN 0.4 MG CAP.SR.24H PO SCH (21:05)
--- NOTE | 2019-11-12 06:34 | NUR ---
MS RN CLOSE NOTES PATIENT IS LAYING IN BED. A/O X2. ON 2L NASAL CANULA, NO SOB/ ACUTE RESPIRATORY DISTRESS NOTED. IV IN L FOREARM #22G IS PATENT AND INTACT RUNNING 1/2 NS @ 50MLS/HR. COLOSTOMY BAG IN PLACE 250ML OUTPUT. APPEARS COMFORTABLE/ NO COMPLAINTS OF PAIN AT THE MOMENT. BED IS IN LOWEST LOCKED POSITION WITH SIDE RAILS UP X3, SEMI FOWLERS. CALL LIGHT IS WITHIN REACH. WILL ENDORSE TO AM NURSE.
[2019-11-12 06:44] LABS: CALCIUM, SERUM 8.2 mg/dL (8.5-10.1); CARBON DIOXIDE 24 mmol/L (21-32); CHLORIDE 112 mmol/L (98-107); CREATININE 1.5 mg/dL (0.6-1.3); GLUCOSE 80 mg/dL (74-106); POTASSIUM 3.7 mmol/L (3.5-5.1); SODIUM SERUM 144 mmol/L (136-145); UREA NITROGEN, BLOOD 22 mg/dL (7-18)
[2019-11-12 07:20] LABS: BASOPHILS % (AUTO) 0.8 % (0.0-2.0); EOSINOPHILS % (AUTO) 2.5 % (0.0-6.0); HEMATOCRIT 28 % (39-51); HEMOGLOBIN 9.2 g/dL (13.5-17.5); LYMPHOCYTES # (AUTO) 0.6 /CMM (0.8-4.8); LYMPHOCYTES % (AUTO) 9.4 % (20.0-44.0); MEAN CORPUSCULAR HGB CONC 33 g/dl (31.0-36.0); MEAN CORPUSCULAR VOLUME 103 fL (80-96); MONOCYTES # (AUTO) 0.4 /CMM (0.1-1.30); MONOCYTES % (AUTO) 6.3 % (2.0-12.0); NEUTROPHILS # (AUTO) 4.8 /CMM (1.8-8.9); PLATELET COUNT (AUTO) 237 /CMM (150-450); RED BLOOD CELL COUNT(AUTO) 2.77 MIL/uL (4.5-6.0)
--- NOTE | 2019-11-12 07:30 | NUR ---
MS/RN Opening note Patient received from nightshift. A/O X2, vital signs stable, appears comfortable, in no distress. IV fluids infusing at 50ml/hr via left forearm 22g, no signs of infiltration seen. Colostomy noted with minimal output at this time. Safety measures in place, bed in low setting, side rails X3 in upright position, call light within reach. Bed alarm switched on for safety. Will continue to monitor and ensure safety.
[2019-11-12 08:00] VITALS: BP 104/59
--- NOTE | 2019-11-12 09:00 | NUR ---
MS/RN Medicatins Morning medications administered as ordered, crushed with apple sauce.
[2019-11-12 09:14] VITALS: BP 104/59
[2019-11-12] MEDS: CARVEDILOL 3.125 MG TABLET PO SCH (09:14)
[2019-11-12] MEDS: CITRIC ACID/SODIUM CITRATE (BICITRA)15 ML UDC PO SCH ×2 (09:14→12:45)
[2019-11-12] MEDS: CHLORHEXIDINE GLUCONATE 15 ML UDC MM SCH (09:14)
[2019-11-12] MEDS: ENSURE ENLIVE CHOC 237 ML CAN PO SCH ×2 (09:15→12:44)
[2019-11-12] MEDS: PANTOPRAZOLE 40 MG TABLET.DR PO SCH (09:23)
--- NOTE | 2019-11-12 10:57 | NUR ---
MS/RN S/B Dr Muller Seen by MD - awaiting on outcome of appeal.
--- NOTE | 2019-11-12 12:00 | NUR ---
MS/body man order Patient to be discharged to home. Home hospice will be arranged.
--- NOTE | 2019-11-12 16:24 | NUR ---
MS/environmental health safety manager Patient discharged to home in stable condition. Report given to paramedics, all paperwork completed and signed by two RN's. Heplock removed, pressure dressing applied. Wound care carried out, pictures taken and placed in chart. Colostomy bag emptied, 300ml liquid stool. Report given to paramedics, all personal belongings with patient, left facility wearing hearing aids. [employer] batteries and case handed to paramedics.
== END 2019-11-12 16:10 | disposition hospice, home (50) | DRG 919 ==
LOC: ER 11:45 → TELE1 14:01 → ICU 16:07 → MED 10-29 12:46
PROVIDERS: ADMIT Student in an Organized Health Care Education/Training Program; ATTEND Family Medicine
PROC: 05HA33Z Insertion of Infusion Device into Left Brachial Vein, Percutaneous Approach (ICD-10-PCS; 2019-10-27)
PROC: 0F798DZ Dilation of Common Bile Duct with Intraluminal Device, Via Natural or Artificial Opening Endoscopic (ICD-10-PCS; principal; 2019-11-03)
PROC: 0FPB8DZ Removal of Intraluminal Device from Hepatobiliary Duct, Via Natural or Artificial Opening Endoscopic (ICD-10-PCS; 2019-11-03)
DX: T85.79XA Infection and inflammatory reaction due to other internal prosthetic devices, implants and grafts, initial encounter (principal); A41.59 Other Gram-negative sepsis; J18.9 Pneumonia, unspecified organism; J96.21 Acute and chronic respiratory failure with hypoxia; N17.0 Acute kidney failure with tubular necrosis; R65.21 Severe sepsis with septic shock; K72.00 Acute and subacute hepatic failure without coma; K83.1 Obstruction of bile duct; D65 Disseminated intravascular coagulation [defibrination syndrome]; C25.9 Malignant neoplasm of pancreas, unspecified; I13.0 Hypertensive heart and chronic kidney disease with heart failure and stage 1 through stage 4 chronic kidney disease, or unspecified chronic kidney disease; I50.22 Chronic systolic (congestive) heart failure; N39.0 Urinary tract infection, site not specified; K83.09 Other cholangitis; E87.2 Acidosis; M62.82 Rhabdomyolysis; J98.11 Atelectasis; Z66 Do not resuscitate; N18.3 Chronic kidney disease, stage 3 (moderate); E87.5 Hyperkalemia; E86.0 Dehydration; F03.90 Unspecified dementia, unspecified severity, without behavioral disturbance, psychotic disturbance, mood disturbance, and anxiety; I25.10 Atherosclerotic heart disease of native coronary artery without angina pectoris; I70.0 Atherosclerosis of aorta; D53.9 Nutritional anemia, unspecified; N28.1 Cyst of kidney, acquired; Z86.73 Personal history of transient ischemic attack (TIA), and cerebral infarction without residual deficits; Z95.1 Presence of aortocoronary bypass graft; Z93.3 Colostomy status; Z82.49 Family history of ischemic heart disease and other diseases of the circulatory system; Z96.641 Presence of right artificial hip joint; D63.8 Anemia in other chronic diseases classified elsewhere; N13.9 Obstructive and reflux uropathy, unspecified; S81.812A Laceration without foreign body, left lower leg, initial encounter; S81.811A Laceration without foreign body, right lower leg, initial encounter; X58.XXXA Exposure to other specified factors, initial encounter; Y92.9 Unspecified place or not applicable; M62.50 Muscle wasting and atrophy, not elsewhere classified, unspecified site; Y83.9 Surgical procedure, unspecified as the cause of abnormal reaction of the patient, or of later complication, without mention of misadventure at the time of the procedure; Y92.009 Unspecified place in unspecified non-institutional (private) residence as the place of occurrence of the external cause; K82.8 Other specified diseases of gallbladder; D89.9 Disorder involving the immune mechanism, unspecified; I48.0 Paroxysmal atrial fibrillation; E87.6 Hypokalemia
CPT/HCPCS: 36415; 36600; 71045-TC; 74018; 76705-TC; 80048-TC; 80053-TC; 80061-TC; 80076-TC; 81000-TC; 82247-TC; 82550-TC; 82728-TC; 82803-TC; 83605-TC; 83615-TC; 83735-TC; 83880; 84100-TC; 84443-TC; 84484-TC; 85025-TC; 85378-TC; 85385-TC; 85610-TC; 85730-TC; 86140-TC; 86850-TC; 87040-TC; 87081-TC; 87086-TC; 87186-TC; 92526; 92611-TC; 93307-TC; 97110-TC; 97112-TC; 97116-TC; 97530-TC; A4216; G0378; J0330; J0456; J0696; J1100; J1644; J2185; J2405; J2704; J3480; J3490; J7030; J7042; J7050; J7060; Q9966; U0003-CS